=== PATIENT | female | born 1945 | race Caucasian/White ===

== ENCOUNTER 2017-04-02 08:23 | Outpatient (CLI) | payer BC ==
--- NOTE | 2017-04-02 10:19 | PRG ---
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 The patient was previously seen in April of this year in the Wound Center for an ulceration of the left anterior lower leg. The patie nt states that the ulceration of her right lower leg began in January of this year. She states that the ulceration worsened in its appearance in February and "went crazy" in March. She states she h as been treating the ulceration with Neosporin followed by a Band-Aid. The patient was seen by Dr. Qian contreras and referred to the Wound Center. The patient states she was placed on clindamycin p.o. by Dr Sumit Pascal at the time of her visit. The patient admits to edema of her right lower extremity. She d enies any fever or chills. The patient has undergone venous ablation on the left, but not on the rig . PHYSICAL EXAMINATION: VITAL SIGNS: Temperature 97.7, pulse 68, respirations 18, blood pressure 109/56. EXTREMITIES: The ulceration of the right medial lower leg measures approximately 2.0 x 1.6 cm. Gran ulation tissue is present within the wound margins. No purulent drainage is associated with the woun d. No cellulitis of the right lower leg is appreciated. No maceration of the skin of the periwound is noted. A dorsalis pedis pulse is easily palpable on the right. Mild to moderate edema of the rig foot and lower leg is present on today's exam. Silverlon, Webril, and the 3M Coban 2 layer compre ssion system were applied to the ulceration of the right medial lower leg. ASSESSMENT AND PLAN: 1. Varicose veins with ulcer and inflammation. The patient is to return to the Wound Center in 1 we ek for a dressing change of Silverlon, Webril, and the 3M Coban 2 layer compression system. The diego ent is to receive these dressing changes on a weekly basis here in the Wound Center. I will see Ms. Chou again in 3 weeks. 2. Hypothyroidism. 3. Gastroesophageal reflux disease. 4. Irritable bowel syndrome. 5. Osteoarthritis. 6. Multiple allergies.
[2017-04-02] MEDS ORDERED: Sodium Chloride 0.9% 15 ML NEB ONE (17:06)
[2017-04-02] MEDS ORDERED: Lidocaine 2% Jelly 5 ML TUBE ONE (17:06)
== END 2017-04-02 08:24 | disposition home or self-care (01) ==
LOC: WCC 08:23
PROVIDERS: ATTEND Family Medicine
DX: I83.215 Varicose veins of right lower extremity with both ulcer other part of foot and inflammation (principal); E03.9 Hypothyroidism, unspecified; K21.9 Gastro-esophageal reflux disease without esophagitis; K58.9 Irritable bowel syndrome, unspecified; T78.40XA Allergy, unspecified, initial encounter
CPT/HCPCS: 11042; A4218

== ENCOUNTER 2017-04-19 08:45 | Outpatient (CLI) | payer BC ==
[2017-04-19] MEDS ORDERED: Lidocaine 2% Jelly 5 ML TUBE ONE (09:00)
--- NOTE | 2017-04-19 10:41 | PRG ---
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 The patient was previousl y seen in 04/2016 in the Wound Center for an ulceration of the left anterior lower leg. The patient previously stated that the ulceration of her right medial lower leg began in 01/2017. She stated karlo t the ulceration worsened in its appearance in February "went crazy" in March. She stated she had been treating the ulceration with Neosporin followed by a Band-Aid. The patient was seen by Dr. Jonathon caraballo and referred to the Wound Center. The patient stated she was placed on clindamycin p.o. by Dr. Pascal at the time of her visit. The patient stated she had edema of her right lower extremity prio r to being seen in the Wound Center. The patient denies any fever or chills. She has no complaints today. The patient has undergone venous ablation on the left, but not on the right. PHYSICAL EXAMINATION: VITAL SIGNS: Temperature 97.6, pulse 73, respirations 15, and blood pressure 130/64. EXTREMITIES: The ulceration of the right medial lower leg measures approximately 1.5 x 2.3 cm. The dimensions of the wound at the time of the patient's visit on 04/02/2017 were approximately 2.0 x 1.6 cm. A new ulceration is present over the right medial lower leg, which measures approximately 3.0 x 1.7 cm. No purulent drainage is associated with either wound. No cellulitis of the right lower leg is appreciated. No maceration of the skin of the periwound of either wound is noted. No significan t edema of the right foot or lower leg is present on exam today. Silverlon, Webril, and the 3M Coban 2 layer compression system were applied to the ulcerations of the right medial lower leg. ASSESSMENT AND PLAN: 1. Varicose veins with ulcers and inflammation. The patient is to discontinue the dressings applied in clinic today in 1 week and begin dressing changes of Silverlon in conjunction with the use of her compression garment. Arrangements will also be made for the patient to be evaluated for venous abla tion on the right. I will see Ms. Chou again after she has been evaluated for venous ablation on t he right and any necessary treatment is complete. The patient understands and is in agreement with preceding treatment plan. 2. Hypothyroidism. 3. Gastroesophageal reflux disease. 4. Irritable bowel syndrome. 5. Osteoarthritis. 6. Multiple allergies.
== END 2017-04-19 08:46 | disposition home or self-care (01) ==
LOC: WCC 08:45
PROVIDERS: ATTEND Family Medicine
DX: I83.218 Varicose veins of right lower extremity with both ulcer of other part of lower extremity and inflammation (principal); L97.919 Non-pressure chronic ulcer of unspecified part of right lower leg with unspecified severity; E03.9 Hypothyroidism, unspecified; K21.9 Gastro-esophageal reflux disease without esophagitis; K58.9 Irritable bowel syndrome, unspecified; M19.90 Unspecified osteoarthritis, unspecified site; T78.8XXA Other adverse effects, not elsewhere classified, initial encounter
CPT/HCPCS: 97602

== ENCOUNTER 2017-08-16 09:12 | Outpatient (CLI) | payer BC ==
--- NOTE | 2017-08-16 11:14 | PRG ---
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 The patient states she ma y undergo venous ablation on the left by Dr. Jauregui. The patient has previously undergone venous ablat ion on the right with an improvement in the appearance of the ulceration of her right medial lower le g. The patient is presently performing dressing changes of Silverlon for her ulcerations. PHYSICAL EXAMINATION: VITAL SIGNS: Temperature 97.7, pulse 86, respirations 20, blood pressure 136/65. EXTREMITIES: The ulceration of the right medial lower leg measures approximately 8.5 x 3.8 cm. An u lceration of the right lateral lower leg is present which measures approximately 0.5 x 0.5 cm. Anoth er ulceration of the left lateral lower leg is present which measures approximately 3.5 x 3.5 cm. No purulent drainage is associated with any of the wounds. Erythema of the right and left lower legs i s present which appears to be secondary to stasis changes as opposed to an infectious process. No ma ceration of the skin of the right or left lower leg is present on exam today. A dorsalis pedis pulse is easily palpable on the right and on the left. Edema of the right and left feet and lower legs is present on exam today. ASSESSMENT AND PLAN: 1. Varicose veins with ulcers and inflammation. The ulcerations will be dressed with Xeroform gauze , ABDs, Kerlix, and Patrick bandages today. The patient is to continue daily dressing changes for her ul cerations after cleansing and irrigation. The patient will be referred to Dr. Jauregui for evaluation fo r venous ablation on the left. 2. Lymphedema tarda. The patient continues to have edema of the lower extremities, despite elevatio n and treatment with compression. Arrangements will be made for the initiation of in-home lymphedema therapy with a pneumatic pump. 3. Hypothyroidism. 4. Gastroesophageal reflux disease. 5. Irritable bowel syndrome. 6. Osteoarthritis. 7. Multiple allergies.
[2017-08-16] MEDS ORDERED: Sodium Chloride 0.9% 15 ML NEB ONE (15:33)
[2017-08-16] MEDS ORDERED: Lidocaine 2% Jelly 5 ML TUBE ONE (15:33)
== END 2017-08-16 09:13 | disposition home or self-care (01) ==
LOC: WCC 09:12
PROVIDERS: ATTEND Family Medicine
DX: I83.218 Varicose veins of right lower extremity with both ulcer of other part of lower extremity and inflammation (principal); I89.0 Lymphedema, not elsewhere classified; E03.9 Hypothyroidism, unspecified; K21.9 Gastro-esophageal reflux disease without esophagitis; K58.9 Irritable bowel syndrome, unspecified; M19.90 Unspecified osteoarthritis, unspecified site; L97.919 Non-pressure chronic ulcer of unspecified part of right lower leg with unspecified severity; Z91.09 Other allergy status, other than to drugs and biological substances
CPT/HCPCS: 29581; A4218

== ENCOUNTER 2017-08-31 20:48 | Inpatient (IN) | payer BC, MEDICARE ==
[2017-08-31 23:04] LABS: #Basophils 0.2 thou/uL (0.0-0.2); #Monocytes 1.1 thou/uL (0.11-0.59); #Neutrophils 9.1 thou/uL (1.40-6.50); %Basophils 1.6 % (0.0-1.0); %Lymphocytes 9.1 % (21.0-51.0); %Monocytes 9.3 % (0.0-10.0); Hemoglobin 11.7 g/dL (12.0-16.0); Mean Corpuscular HGB CONC 33.6 g/dL (32.0-36.0); Mean Corpuscular Hemoglobin 28.9 pg (27.0-31.0); Mean Corpuscular Volume 85.8 fl (81.0-99.0); Mean Platelet Volume 4.8 fL (7.4-10.4); Platelet Count 326 thou/uL (130-400); RBC Distribution Width 10.5 % (11.5-14.5); Red Blood Cell (RBC) Count 4.05 mill/uL (4.20-5.40); White Blood Cell (WBC) Count 11.3 thou/uL (4.8-10.8)
[2017-08-31 23:12] LABS: ALT (SGPT) 16 U/L (8-55); AST (SGOT) 19 U/L (5-34); Albumin 3.9 g/dL (3.4-4.8); Alkaline Phosphatase 63 U/L (40-150); Anion Gap 15 mmol/L (10-20); BUN (Urea Nitrogen) 17 mg/dL (9.8-20.1); Bilirubin, Total 0.6 mg/dL (0.2-1.2); Calc. Creatinine Clearance 0 mL/min (70-130); Calcium 9.2 mg/dL (7.8-10.44); Carbon Dioxide 24 mmol/L (23-31); Chloride 99 mmol/L (98-107); Estimated GFR-MDRD Greater than 90; Globulin 3.1 g/dL (2.4-3.5); Glucose 89 mg/dL (83-110); Potassium 3.3 mmol/L (3.5-5.1); Sodium 135 mmol/L (136-145)
--- NOTE | 2017-08-31 23:15 | RAD ---
AP VIEW PELVIS: 08/31/17 HISTORY: History of hip surgery in 1999. Patient had a recent history of fall with left sided hip pain. AP view pelvis is obtained. Comparison made to previous exam from 12/20/09. AP view pelvis demonstrates surgical changes in the right proximal femur compatible with old surgical trauma and hardware. There is now an area of displaced osseous lucency in the left superior and inferior pubic rami. These were not present on the patient's previous comparison radiograph from 2009 and likely represents acu te left pelvic fractures. The left proximal femur is unremarkable. IMPRESSION: Findings concerning for left superior and inferior pubic rami fractures. POS: [facility]
[2017-08-31] MEDS ORDERED: Clindamycin/D5W 900 mg/50 ml Premix Bag ONE (23:16)
[2017-08-31] MEDS ORDERED: Morphine 5 MG/ML SYRINGE ONE (23:36)
[2017-09-01] MEDS ORDERED: Morphine 5 MG/ML SYRINGE ONE (01:53)
[2017-09-01] MEDS ORDERED: Acetaminophen 325 MG TAB PO PRN ×2 (02:43→11:33)
[2017-09-01] MEDS ORDERED: Ondansetron ODT 4 MG TAB SL PRN (02:43)
[2017-09-01] MEDS ORDERED: Ondansetron HCl/PF 4 MG/2 ML Vial IVP PRN ×2 (02:43→11:33)
[2017-09-01] MEDS: Morphine 4 MG/ML VIAL SLOW IVP PRN ×2 (03:26→10:21)
[2017-09-01 03:30] VITALS: BMI 23.8
[2017-09-01] MEDS ORDERED: Mag-Al 1200 mg/1200 mg/30 ML UDCUP PO PRN (11:33)
[2017-09-01] MEDS ORDERED: Senokot 8.6 MG TAB PO PRN (11:33)
[2017-09-01] MEDS ORDERED: Guaifenesin DM 100-10/5 ML UDCUP PO PRN (11:33)
--- NOTE | 2017-09-01 11:41 | CT ---
PRELIMINARY REPORT/[facility]/EMERGENTY AFTER-HOURS PROCEDURE CT Pelvis Without Intravenous Contrast CLINICAL HISTORY: 72 years old, female; Pain and injury or trauma; Fall; Initial encounter; Fracture of pelvis & hip; L eft; Traumatic fracture; Ischium; Closed fracture; Hip pain; Left hip; Injury date: 08/26/2017; Injury details: Fall five days ago, C/O left hip pain; Patient HX: Hs of right hip surgery in 2010 TECHNIQUE: Axial computed tomography images of the pelvis without intravenous contrast. All CT scans at this regional medical center use one or more dose reduction techniques, viz.: automated exposure control; ma/Kv adjustment p er patient size (including targeted exams where dose is matched to indication; i.e. head); or iterative reconstruction technique. Coronal and sagittal reformatted images were created and revie wed. COMPARISON: No relevant prior studies available. FINDINGS: Moderately displaced acute fracture of the lateral aspect of the left superior pubic ramus. Mildly di splaced and slightly comminuted acute fracture of the mid left inferior pubic ramus. No visible acute fracture or dislocation of either femoral head or neck. Old fracture of the right hip with fixation hardware in place. No definite acute fracture of the other included bones of the pelvis. No definite/significant diastases of either SI joint, or the symphysis pubis. Moderate degenerative/arthritic changes in the lower lumbar spine. Multiple enlarged lymph nodes in the inguinal regions bilaterally. IMPRESSION: Acute fractures of the left superior and inferior pubic rami, see above details. No visible acute fracture or dislocation of either femoral head or neck. Other findings discussed above. Thank you for allowing us to participate in the care of your patient. Dictated and Authenticated by: Satnam Avila MD 09/01/2017 1:08 AM Central Time ([place] & [place]) FINAL REPORT CT OF PELVIS PERFORMED WITHOUT CONTRAST ENHANCEMENT: Date: 08/31/17 HISTORY: Fall with left hip pain. FINDINGS: The inferior margin of the liver is seen on this examination. I cannot exclude the liver being enlarg ed given its position. There are no signs of any free fluid within the pelvis. There is no adenopathy or mass. Review of the osseous structures show arthritic changes of the SI joints. No diastasis of t he symphysis. There are acute left superior and inferior pubic rami fractures. There are arthritic ch anges of the left hip. No femoral neck fracture. Postoperative changes of the right hip are seen. IMPRESSION: 1. Acute left superior and inferior pubic rami fractures. There is some associated hematoma in the r egion of the obturator internus on the left and adductor muscle groups. 2. Incidental note is made of some moderately enlarged inguinal nodes of uncertain significance. Cli nical correlation is recommended. This report is in agreement with the preliminary report issued by [facility]. POS: [facility]
[2017-09-01] MEDS: Vancomycin HCl 1 GM in Premix Bag 1 BAG IVPB SCH (14:24)
[2017-09-01] MEDS ORDERED: Levothyroxine Sodium 100 MCG TAB PO SCH (14:30)
[2017-09-01] MEDS: HYDROcodone/Acetaminophen 5/325 mg Tablet PO PRN ×2 (14:39→18:38)
--- NOTE | 2017-09-01 16:13 | ULT ---
BILATERAL LOWER EXTREMITY VENOUS DOPPLER ULTRASOUND EVALUATION 09/01/17 HISTORY: Lower extremity pain, pelvic fracture six days ago. FINDINGS/IMPRESSION: Multiple longitudinal and transverse images of the right and left lower extremity venous system is ob tained using a multihertz linear array transducer. Real time, color flow, and spectral waveform doppl er analysis demonstrates the right and left common femoral, superficial femoral, femoral profunda, po pliteal, posterior tibial vein, post trifurcation vein, and greater saphenous veins are all patent. No evidence of right or left lower extremity deep venous thrombosis seen. Enlarged left groin solid lesion seen with internal areas of hyperechogenicity. This is compatible wi th multiple bilateral groin lymph nodes. POS: [facility]
[2017-09-01] MEDS: cefTRIAXone\\ROCEPHIN 1 GM in Sodium Chloride 0.9% 100 ML IVPB SCH (16:41)
--- NOTE | 2017-09-01 19:29 | HP ---
REASON FOR ADMISSION: Pubic rami fracture, chronic venous stasis with likely secondary bacterial infection in both lower extremity ulcers. HISTORY OF PRESENT ILLNESS: The patient gives a history of tipping over at home and fell on her left side. This happened on Sunday. She felt a bit of pain in her groin area. On Sunday, she had to use two canes to ambulate. This progressively got worse. On Sunday, her finished carpet inspector had come and in fact helped her to get in the car to go to [facility] at 7:00 p.m. Patient also mentions that she has had venous stasis for nearly 40 years. She has had a recent laser ablation done in July [address] Jauregui. She has also had some skin grafting done around the same time by Dr. Flaherty. Both the lower extremities are becoming more erythematous per patient and swollen with pain to ambulate. She has noticed yellow discharge coming out of her both lower extremity ulcerations recently. Patient says she took clindamycin for nearly 6 weeks up until mid July. No fever as such at home. PAST MEDICAL/SURGICAL HISTORY: Chronic venous stasis in both lower extremities from last 40 years or so, prior laser ablation and skin grafting to both lower extremities, hypothyroidism, irritable bowel syndrome with diarrhea, cataract surgery, retinal detachment x2 with repair done by Dr. Pierson, had a hip surgery, osteoporosis, anxiety, depression. CURRENT MEDICATIONS: Patient takes Levoxyl 200 mcg p.o. daily, vitamin D3 of 2000 units p.o. daily, ranitidine 75 mg p.o. twice daily. ALLERGIES: PENICILLIN, SULFA, and TETRACYCLINE. PERSONAL HISTORY: Does not abuse alcohol or drugs. No history of smoking. 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 Patient normally ambulates by herself and has been ambulating around 5000 steps. FAMILY HISTORY: Mother lived up to 88 years. She had history of diabetes and osteoporosis. Father at the age of 70 years. He has had history of coronary artery disease, dyslipidemia. Code status: is FULL. EVANGELISTA is one of her 2 children, son is easy to respond to phone calls per patient. REVIEW OF SYSTEMS: The following complete review of systems was negative, unless otherwise mentioned in the HPI or below: Constitutional: Weight loss or gain, ability to conduct usual activities. Skin: Rash, itching. Eyes: Double vision, pain. ENT/Mouth: Nose bleeding, neck stiffness, pain, tenderness. Cardiovascular: Palpitations, dyspnea on exertion, orthopnea. Respiratory: Shortness of breath, wheezing, cough, hemoptysis, fever or night sweats. Gastrointestinal: Poor appetite, abdominal pain, heartburn, nausea, vomiting, constipation, or diarrhea. Genitourinary: Urgency, frequency, dysuria, nocturia. Musculoskeletal: Pain, swelling. Neurologic/Psychiatric: Anxiety, depression. Allergy/Immunologic: Skin rash, bleeding tendency. PHYSICAL EXAMINATION: GENERAL: Patient is a 72-year-old female who is currently not in any acute distress. VITAL SIGNS: Blood pressure 110/60, pulse 82 per minute, respiratory rate 16 per minute, temperature 98.2 degrees Fahrenheit, saturating 98% on room air. NECK: Supple, no elevated JVD. HEENT: Extraocular muscles intact. Pupils reacting to light. Oral cavity mucous membranes are dry. No exudates or congestion. CARDIOVASCULAR: S1, S2 heard. Regular rhythm. RESPIRATORY: Air entry 1+ bilaterally. No rales or rhonchi. ABDOMEN: Soft, bowel sounds heard. No tenderness, rigidity or guarding. EXTREMITIES: Patient has ulcers over the medial aspect of both legs which are covered in dressing. She also has erythema surrounding these ulcerations. Has mild edema. Patient has mild edema and mild calf tenderness as well. Peripheral pulses are 1+ bilateral. No gangrene seen. CENTRAL NERVOUS SYSTEM: No gross focal deficits seen. Patient is alert, awake , and oriented well. PSYCHIATRIC: Patient's mood is euthymic. No hallucinations or delusions. LABORATORY AND X-RAY FINDINGS: White count of 11, H&H 11 and 34, platelet count 326,000 with 80% neutrophils, MCV is 85, potassium 3.3, sodium 135, BUN 17 , creatinine 0.5, glucose 89. Lactic acid 1.0. Liver enzymes within normal limits. Pelvic CAT scan done shows acute left superior and inferior pubic rami fractures with some associated hematoma in the region of obturator internus on the left and adductor muscle groups. There is also moderately enlarged inguinal nodes of uncertain significance. CLINICAL IMPRESSION AND PLAN: Patient will be admitted to medical floor for pubic rami fractures, chronic wounds on both lower extremities due to venous stasis with ulcerations and current secondary bacterial infection. We will place her on ceftriaxone and vancomycin. Dr. Ross has been consulted from ER. PT, OT evaluations will be requested. Patient likely will need rehabilitation. She stays alone. Ultrasound venous Doppler of lower extremities will be obtained to rule out DVT. Patient states she is functional and ambulates nearly 5000 steps at home. She does not use any assistive devices. Wound Care consultation will be requested as well. We will continue her Levoxyl, melatonin, vitamin D3 as before. We will continue to closely monitor her on medical floor. LORI
[2017-09-01] MEDS: Famotidine 20 MG TAB PO SCH (23:52)
[2017-09-01] MEDS: Melatonin 3 MG TAB PO SCH (23:52)
[2017-09-01] MEDS: guaiFENesin ER 600 MG TAB PO SCH (23:52)
[2017-09-02] MEDS: Vancomycin HCl 1 GM in Premix Bag 1 BAG IVPB SCH ×2 (02:20→13:45)
[2017-09-02 04:36] LABS: #Lymphocytes 1.1 thou/uL (1.20-3.40); #Monocytes 1.2 thou/uL (0.11-0.59); #Neutrophils 8.8 thou/uL (1.40-6.50); %Basophils 0.3 % (0.0-1.0); %Eosinophils 0.1 % (0.0-10.0); %Lymphocytes 9.7 % (21.0-51.0); %Monocytes 10.9 % (0.0-10.0); Hemoglobin 11.1 g/dL (12.0-16.0); Mean Corpuscular HGB CONC 33.4 g/dL (32.0-36.0); Mean Corpuscular Hemoglobin 29.6 pg (27.0-31.0); Mean Corpuscular Volume 88.7 fl (81.0-99.0); Mean Platelet Volume 5.5 fL (7.4-10.4); Platelet Count 332 thou/uL (130-400); RBC Distribution Width 11.3 % (11.5-14.5); Red Blood Cell (RBC) Count 3.73 mill/uL (4.20-5.40); White Blood Cell (WBC) Count 11.2 thou/uL (4.8-10.8)
[2017-09-02 04:49] LABS: Anion Gap 8 mmol/L (10-20); BUN (Urea Nitrogen) 17 mg/dL (9.8-20.1); Calc. Creatinine Clearance 115 mL/min (70-130); Calcium 8.2 mg/dL (7.8-10.44); Carbon Dioxide 25 mmol/L (23-31); Chloride 101 mmol/L (98-107); Estimated GFR-MDRD Greater than 90; Glucose 123 mg/dL (83-110); Potassium 3.3 mmol/L (3.5-5.1); Sodium 131 mmol/L (136-145)
[2017-09-02] MEDS: Levothyroxine Sodium 100 MCG TAB PO SCH (05:35)
[2017-09-02] MEDS ORDERED: Potassium Chloride 20 MEQ TAB PO SCH (07:45)
[2017-09-02] MEDS ORDERED: VANCOMYCIN IVPB PRN (08:32)
[2017-09-02] MEDS: Enoxaparin Sodium 40 MG/0.4 ML SYRINGE SC SCH (08:33)
[2017-09-02] MEDS: Famotidine 20 MG TAB PO SCH ×2 (08:33→20:11)
[2017-09-02] MEDS: guaiFENesin ER 600 MG TAB PO SCH ×2 (08:33→20:11)
[2017-09-02] MEDS: HYDROcodone/Acetaminophen 5/325 mg Tablet PO PRN ×3 (08:36→20:11)
--- NOTE | 2017-09-02 11:19 | PDOC.PN ---
- Subjective Encounter Start Date: 09/02/17 Encounter Start Time: 10:15 Subjective: pain is better -: is waiting for PT to help her mobilize - Objective Resuscitation Status: Resuscitation Status FULL:Full Resuscitation MAR Reviewed: Yes Vital Signs & Weight: Vital Signs (12 hours) Temp Pulse Resp BP Pulse Ox 09/02/17 07:50 98.7 F 88 20 93 L 09/02/17 07:36 98.7 F 88 20 119/68 09/02/17 04:00 98.2 F 88 14 122/72 96 09/01/17 23:35 98.8 F 88 16 107/66 93 L Weight Admit Weight 151 lb 15.424 oz Weight 151 lb 15.424 oz I&O: 09/01/17 09/02/17 09/03/17 06:59 06:59 06:59 Intake Total 251 1840 Balance 251 1840 Result Diagrams: 09/02/17 03:14 09/02/17 03:14 Phys Exam - Physical Examination HEENT: PERRLA, moist MMs Neck: no JVD, supple Respiratory: no wheezing, no rales Cardiovascular: RRR, no significant murmur Gastrointestinal: soft, non-tender, positive bowel sounds Musculoskeletal: edema present b/l leg ulcers Neurological: non-focal, moves all 4 limbs Psychiatric: normal affect, A&O x 3 Dx/Plan (1) Bilateral leg ulcer Code(s): L97.919 - NON-PRS CHRONIC ULC UNSP PRT OF R LOW LEG W UNSP SEVERITY; L97.929 - NON-PRS CHRONIC ULC UNSP PRT OF L LOW LEG W UNSP SEVERITY Status: Acute (2) Chronic venous stasis Code(s): I87.8 - OTHER SPECIFIED DISORDERS OF VEINS Status: Chronic (3) Pelvic fracture Code(s): S32.9XXA - FRACTURE OF UNSP PARTS OF LUMBOSACRAL SPINE AND PELVIS, INIT Status: Acute Qualifiers: Encounter type: subsequent encounter Pelvic bone location: pubis Fracture type: closed Laterality: left Comment: left sup and inf rami fracture (4) Hypothyroidism Code(s): E03.9 - HYPOTHYROIDISM, UNSPECIFIED Status: Chronic Qualifiers: Hypothyroidism type: unspecified Qualified Code(s): E03.9 - Hypothyroidism , unspecified (5) Osteoporosis Code(s): M81.0 - AGE-RELATED OSTEOPOROSIS W/O CURRENT PATHOLOGICAL FRACTURE Status: Chronic - Plan is on vanc and ceftriaxone -: surgical consult, ?debridement -: eventually has to wear compression device for wound healing -: replace K+ -: to amb with PT, dc plan is to rehab/swing bed * . Review of Systems - Medications/Allergies Allergies/Adverse Reactions: Allergies Allergy/AdvReac Type Severity Reaction Status Date / Time Penicillins Allergy Verified 10/09/12 09:21 Sulfa (Sulfonamide Allergy Verified 10/09/12 09:21 Antibiotics) Tetracyclines Allergy Verified 10/09/12 09:21 Medications: Current Medications Acetaminophen (Tylenol) 650 mg PO Q4H PRN PRN Reason: Headache/Fever or Pain Last Admin: 09/01/17 18:38 Dose: 650 mg Hydrocodone Bitart/Acetaminophen (Mcgrady 5/325) 1 tab PO Q4H PRN PRN Reason: Moderate Pain (4-6) Last Admin: 09/02/17 08:36 Dose: 1 tab Al Hydroxide/Mg Hydroxide (Maalox) 30 ml PO Q6H PRN PRN Reason: Heartburn or Indigestion Cholecalciferol (Vitamin D3) 2,000 units PO DAILY [facility] Last Admin: 09/02/17 08:33 Dose: 2,000 units Enoxaparin Sodium (Lovenox) 40 mg SC 0900 [facility] Last Admin: 09/02/17 08:33 Dose: 40 mg Famotidine (Pepcid) 20 mg PO BID [facility] Last Admin: 09/02/17 08:33 Dose: 20 mg Guaifenesin (Mucinex) 600 mg PO BID [facility] Last Admin: 09/02/17 08:33 Dose: 600 mg Guaifenesin/Dextromethorphan (Robitussin Dm) 15 ml PO Q4H PRN PRN Reason: Cough Ceftriaxone Sodium 1 gm/ (Sodium Chloride) 100 mls @ 200 mls/hr IVPB 1300 [facility] Last Admin: 09/01/17 16:41 Dose: 100 mls Vancomycin HCl 1 gm/ Device 200 mls @ 200 mls/hr IVPB 0200,1400 [facility] Last Admin: 09/02/17 02:20 Dose: 200 mls Levothyroxine Sodium (Synthroid) 200 mcg PO 0600 [facility] Last Admin: 09/02/17 05:35 Dose: 200 mcg Melatonin (Melatonin) 3 mg PO HS [facility] Last Admin: 09/01/17 23:52 Dose: 3 mg Miscellaneous Medication (Pharmacy To Dose) 1 each IVPB PRN PRN PRN Reason: Pharmacy to dose Ondansetron HCl (Zofran) 4 mg IVP Q6H PRN PRN Reason: Nausea/Vomiting Senna (Senokot) 2 tab PO HSPRN PRN PRN Reason: Constipation
[2017-09-02] MEDS: cefTRIAXone\\ROCEPHIN 1 GM in Sodium Chloride 0.9% 100 ML IVPB SCH (12:24)
--- NOTE | 2017-09-02 13:45 | CON ---
DATE OF CONSULTATION: 09/01/2017 REQUESTING PHYSICIAN: Dr. Baker. REASON FOR CONSULTATION: Pubic rami fracture, left superior and inferior. BRIEF HISTORY OF PRESENT ILLNESS: The patient is a 72-year-old lady, who reports that she fell from a stool at home, landing on her left side, approximately 1 week prior to this admission. She reports some pain in the groin area and was using canes to ambulate. This pain progressively worsened and s he presented to the emergency room for evaluation, and upon evaluation, was found to have pubic rami fracture both superior and inferior on the left side. She was also found to have some erythema of th e right lower extremity, which apparently has been a chronic problem secondary to chronic venous rehan is disease. She has had some vein work performed and has been on clindamycin for nearly up to 6 week s until mid July for this problem and this does appear to be recurring at this point. PAST MEDICAL HISTORY: Remarkable for chronic venous stasis disease. The patient is status post abla tion. Also, diagnosis of hypothyroidism, irritable bowel, cataract disease, prior hip surgery, and o steoporosis. MEDICATIONS: Include Levoxyl, vitamin D, and ranitidine. ALLERGIES: Include PENICILLIN, SULFA, AND TETRACYCLINE. SOCIAL HISTORY: Patient is a nonsmoker. Denies alcohol or drug use. FAMILY HISTORY: Noncontributory. REVIEW OF SYSTEMS: Denies recent fevers, chills, or sweats. Denies chest pain or shortness of breat h. Denies numbness or tingling in the lower extremity. PHYSICAL EXAMINATION: VITAL SIGNS: Patient is found to have a temperature of 97.7, heart rate of 78, respiratory rate of 1 6. HEENT: Atraumatic, normocephalic. LUNGS: Breathing is unlabored. PELVIS: Remarkable for no instability with compression or push/pull at the pelvis, although with com pression, she does feel some mild left-sided groin pain. MUSCULOSKELETAL: She is found to have equal leg lengths. She has supple range of motion of hip, kne es, ankle, and feet distally. She denies any posterior sacroiliac-type pain. SKIN: The right lower extremity remarkable for erythema that extends up to about mid thigh. She is found to have wrappings over her venous stasis ulcers at the acosta. X-RAYS: Plain films of the pelvis as well as CT scan of pelvis remarkable for left-sided high superi or ramus fracture as well as inferior rami with minimal displacement. ASSESSMENT: A 72-year-old lady with minimally displaced superior and inferior rami fractures with a stable pelvic ring, status post ground-level fall, approximately 1 week ago, and with cellulitis and chronic venous stasis disease of the right lower extremity. PLAN: Today, I discussed with patient that she may mobilize as tolerated. She will probably be more comfortable with a walker; however, she may be weightbearing as tolerated bilaterally. At this poin t in time, we will just repeat x-rays in approximately 1 month's time in the clinic for followup. e patient may be discharged when she is medically cleared regarding her cellulitic issues and other m edical problems.
--- NOTE | 2017-09-02 14:33 | CON ---
DATE OF CONSULTATION: 09/02/[address] Baker, [facility]. REASON FOR CONSULTATION: Venous stasis disease, lower extremity. HISTORY OF PRESENT ILLNESS: This is a 72-year-old female, who presents with a history of longstandin g venous stasis disease, bilateral lower extremities. She has had vein ablation, now she sees Dr. Sr fuller for chronic venous stasis ulcers. She has had a couple allograft skin grafts. No split-thickn ess skin grafts. She has not had any debridement other than what Dr. Flaherty has done. She denies h istory of known wound VAC on these areas. She presents with more pain and swelling in the area. PAST MEDICAL HISTORY: Venous stasis disease, retinal detachment, irritable bowel syndrome, osteoporo sis, anxiety, depression. PAST SURGICAL HISTORY: As above. MEDICINES: At home, Levoxyl, vitamin D, ranitidine. ALLERGIES: PENICILLIN, SULFA, TETRACYCLINE. 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 No smoking, alcohol, or other drugs. REVIEW OF SYSTEMS: Otherwise, negative unless described above. No family history of GI malignancy o r anesthetic-related complication. PHYSICAL EXAMINATION: VITAL SIGNS: Blood pressure 103/62, pulse 70, respirations 18. HEENT: Sclerae are anicteric. Oropharynx clear. NECK: No lymphadenopathy. CHEST: Clear. HEART: Regular rate and rhythm. ABDOMEN: Soft, nontender. EXTREMITIES: Examination of bilateral lower extremity shows there to be no limb-threatening ischemia . Examination of the right lower extremity wounds reveals there to be venous stasis ulcers, medial a nd lateral. There is buildup of some granulation tissue. There is also some fibrinopurulent dischar ge with some surrounding redness, no drainable abscess. No wound necrotic tissue. ASSESSMENT: Chronic longstanding venous stasis disease with persistent venous stasis ulcers. PLAN: My recommendation will be wound VAC to these areas to get him cleaned up. We will discuss derick Flaherty in the morning. The patient notes some other sort of pressure wound device, so we will touch base with Dr. Flaherty to make sure we are on the same page.
[2017-09-02] MEDS: Melatonin 3 MG TAB PO SCH (20:11)
[2017-09-03] MEDS: HYDROcodone/Acetaminophen 5/325 mg Tablet PO PRN ×5 (01:07→21:47)
[2017-09-03 01:25] LABS: Vancomycin, Trough 7.1 ug/mL
[2017-09-03] MEDS: Vancomycin HCl 1 GM in Premix Bag 1 BAG IVPB SCH (03:28)
[2017-09-03] MEDS: Levothyroxine Sodium 100 MCG TAB PO SCH (05:42)
[2017-09-03] MEDS: Enoxaparin Sodium 40 MG/0.4 ML SYRINGE SC SCH (09:26)
[2017-09-03] MEDS: guaiFENesin ER 600 MG TAB PO SCH ×2 (09:26→21:47)
[2017-09-03] MEDS: Famotidine 20 MG TAB PO SCH ×2 (09:26→21:47)
[2017-09-03] MEDS ORDERED: Vancomycin HCl 1.25 GM in Sodium Chloride 0.9% 250 ML 250 ML IVPB SCH (12:00)
[2017-09-03] MEDS: Vancomycin HCl 1.5 GM in Sodium Chloride 0.9% 250 ML 300 ML IVPB SCH ×2 (12:16→23:57)
[2017-09-03] MEDS: cefTRIAXone\\ROCEPHIN 1 GM in Sodium Chloride 0.9% 100 ML IVPB SCH (13:54)
--- NOTE | 2017-09-03 14:29 | PDOC.PN ---
- Subjective Encounter Start Date: 09/03/17 Encounter Start Time: 09:15 -: old records requested/rev Patient seen and examined for pubic rami fracture. No new complaints. No overnight events - Objective Resuscitation Status: Resuscitation Status FULL:Full Resuscitation MAR Reviewed: Yes Vital Signs & Weight: Vital Signs (12 hours) Temp Pulse Resp BP Pulse Ox 09/03/17 11:35 97.7 F 69 12 110/70 95 09/03/17 08:00 97.7 F 72 14 95 09/03/17 04:33 98 F 68 16 104/61 98 Weight Admit Weight 151 lb 15.424 oz Weight 151 lb 15.424 oz I&O: 09/02/17 09/03/17 09/04/17 06:59 06:59 06:59 Intake Total 1840 1600 650 Balance 1840 1600 650 Result Diagrams: 09/02/17 03:14 09/02/17 03:14 Phys Exam - Physical Examination Constitutional: NAD HEENT: PERRLA, moist MMs, sclera anicteric Neck: no JVD, supple Respiratory: no wheezing, no rales, no rhonchi Cardiovascular: RRR, no significant murmur, no rub Gastrointestinal: soft, non-tender, no distention, positive bowel sounds Musculoskeletal: no edema, pulses present wound with dressing, erythema reduced Neurological: non-focal, normal sensation Lymphatic: no nodes Psychiatric: normal affect, A&O x 3 Skin: no rash, normal turgor Dx/Plan (1) Bilateral leg ulcer Code(s): L97.919 - NON-PRS CHRONIC ULC UNSP PRT OF R LOW LEG W UNSP SEVERITY; L97.929 - NON-PRS CHRONIC ULC UNSP PRT OF L LOW LEG W UNSP SEVERITY Status: Acute (2) Fracture of left inferior pubic ramus Code(s): S32.592A - OTH FRACTURE OF LEFT PUBIS, INIT ENCNTR FOR CLOSED FRACTURE Status: Acute (3) Fracture of left superior pubic ramus Code(s): S32.512A - FRACTURE OF SUPERIOR RIM OF LEFT PUBIS, INIT FOR CLOS FX Status: Acute (4) Chronic venous stasis Code(s): I87.8 - OTHER SPECIFIED DISORDERS OF VEINS Status: Chronic (5) GERD (gastroesophageal reflux disease) Code(s): K21.9 - GASTRO-ESOPHAGEAL REFLUX DISEASE WITHOUT ESOPHAGITIS Status: Chronic (6) Hypothyroidism Code(s): E03.9 - HYPOTHYROIDISM, UNSPECIFIED Status: Chronic Qualifiers: Hypothyroidism type: unspecified Qualified Code(s): E03.9 - Hypothyroidism , unspecified (7) Osteoarthritis Code(s): M19.90 - UNSPECIFIED OSTEOARTHRITIS, UNSPECIFIED SITE Status: Chronic (8) Osteoporosis Code(s): M81.0 - AGE-RELATED OSTEOPOROSIS W/O CURRENT PATHOLOGICAL FRACTURE Status: Chronic - Plan cont current plan of care, plan discussed w/ family, continue antibiotics, 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 * medication reviewed as below * symptomatic treatment Review of Systems - Review of Systems Eyes: negative: Pain, Vision Change, Conjunctivae Inflammation, Eyelid Inflammation, Redness, Other ENT: negative: Ear Pain, Ear Discharge, Nose Pain, Nose Discharge, Nose Congestion, Mouth Pain, Mouth Swelling, Throat Pain, Throat Swelling, Other Respiratory: negative: Cough, Dry, Shortness of Breath, Hemoptysis, SOB with Excertion, Pleuritic Pain, Sputum, Wheezing Cardiovascular: negative: chest pain, palpitations, orthopnea, paroxysmal nocturnal dyspnea, edema, light headedness, other Gastrointestinal: negative: Nausea, Vomiting, Abdominal Pain, Diarrhea, Constipation, Melena, Hematochezia, Other Genitourinary: negative: Dysuria, Frequency, Incontinence, Hematuria, Retention , Other Musculoskeletal: negative: Neck Pain, Shoulder Pain, Arm Pain, Back Pain, Hand Pain, Leg Pain, Foot Pain, Other Skin: negative: Rash, Lesions, David, Bruising, Other - Medications/Allergies Allergies/Adverse Reactions: Allergies Allergy/AdvReac Type Severity Reaction Status Date / Time Penicillins Allergy Verified 10/09/12 09:21 Sulfa (Sulfonamide Allergy Verified 10/09/12 09:21 Antibiotics) Tetracyclines Allergy Verified 10/09/12 09:21 Medications: Current Medications Acetaminophen (Tylenol) 650 mg PO Q4H PRN PRN Reason: Headache/Fever or Pain Last Admin: 09/01/17 18:38 Dose: 650 mg Hydrocodone Bitart/Acetaminophen ([place] 5/325) 1 tab PO Q4H PRN PRN Reason: Moderate Pain (4-6) Last Admin: 09/03/17 13:53 Dose: 1 tab Al Hydroxide/Mg Hydroxide (Maalox) 30 ml PO Q6H PRN PRN Reason: Heartburn or Indigestion Cholecalciferol (Vitamin D3) 2,000 units PO DAILY [facility] Last Admin: 09/03/17 09:33 Dose: 2,000 units Enoxaparin Sodium (Lovenox) 40 mg SC 0900 [facility] Last Admin: 09/03/17 09:26 Dose: 40 mg Famotidine (Pepcid) 20 mg PO BID [facility] Last Admin: 09/03/17 09:26 Dose: 20 mg Guaifenesin (Mucinex) 600 mg PO BID [facility] Last Admin: 09/03/17 09:26 Dose: 600 mg Guaifenesin/Dextromethorphan (Robitussin Dm) 15 ml PO Q4H PRN PRN Reason: Cough Ceftriaxone Sodium 1 gm/ (Sodium Chloride) 100 mls @ 200 mls/hr IVPB 1300 [facility] Last Admin: 09/03/17 13:54 Dose: 100 mls Vancomycin HCl 1.5 gm/ Sodium (Chloride) 300 mls @ 200 mls/hr IVPB 1200,2359 [facility] Last Admin: 09/03/17 12:16 Dose: 300 mls Levothyroxine Sodium (Synthroid) 200 mcg PO 0600 [facility] Last Admin: 09/03/17 05:42 Dose: 200 mcg Melatonin (Melatonin) 3 mg PO HS [facility] Last Admin: 09/02/17 20:11 Dose: 3 mg Miscellaneous Medication (Pharmacy To Dose) 1 each IVPB PRN PRN PRN Reason: Pharmacy to dose Ondansetron HCl (Zofran) 4 mg IVP Q6H PRN PRN Reason: Nausea/Vomiting Senna (Senokot) 2 tab PO HSPRN PRN PRN Reason: Constipation
[2017-09-03] MEDS: Melatonin 3 MG TAB PO SCH (21:46)
[2017-09-03] MEDS ORDERED: diphenhydrAMINE 25 MG CAP PO SCH (23:45)
[2017-09-04 05:34] LABS: #Basophils 0.1 thou/uL (0.0-0.2); #Lymphocytes 1.5 thou/uL (1.20-3.40); #Monocytes 0.9 thou/uL (0.11-0.59); #Neutrophils 4.6 thou/uL (1.40-6.50); %Basophils 0.9 % (0.0-1.0); %Eosinophils 0.1 % (0.0-10.0); %Lymphocytes 21.7 % (21.0-51.0); %Monocytes 12.9 % (0.0-10.0); %Neutrophils 64.3 % (42.0-75.0); Hemoglobin 11.4 g/dL (12.0-16.0); Mean Corpuscular HGB CONC 31.9 g/dL (32.0-36.0); Mean Corpuscular Hemoglobin 28.7 pg (27.0-31.0); Mean Corpuscular Volume 89.8 fl (81.0-99.0); Mean Platelet Volume 5.4 fL (7.4-10.4); Platelet Count 392 thou/uL (130-400); RBC Distribution Width 11.1 % (11.5-14.5); Red Blood Cell (RBC) Count 3.98 mill/uL (4.20-5.40); White Blood Cell (WBC) Count 7.1 thou/uL (4.8-10.8)
[2017-09-04 05:43] LABS: Anion Gap 7 mmol/L (10-20); BUN (Urea Nitrogen) 16 mg/dL (9.8-20.1); Calc. Creatinine Clearance 99 mL/min (70-130); Calcium 8.7 mg/dL (7.8-10.44); Carbon Dioxide 31 mmol/L (23-31); Chloride 101 mmol/L (98-107); Estimated GFR-MDRD Greater than 90; Glucose 92 mg/dL (83-110); Magnesium 2.2 mg/dL (1.6-2.6); Sodium 135 mmol/L (136-145)
[2017-09-04 06:15] LABS: Folate (Folic Acid) 9.5 ng/mL (7.0-31.4)
[2017-09-04] MEDS: Levothyroxine Sodium 100 MCG TAB PO SCH (06:26)
[2017-09-04] MEDS: HYDROcodone/Acetaminophen 5/325 mg Tablet PO PRN ×3 (08:08→19:26)
[2017-09-04] MEDS: Enoxaparin Sodium 40 MG/0.4 ML SYRINGE SC SCH (08:11)
[2017-09-04] MEDS: guaiFENesin ER 600 MG TAB PO SCH ×2 (08:11→21:00)
[2017-09-04] MEDS: Famotidine 20 MG TAB PO SCH ×2 (08:11→21:00)
--- NOTE | 2017-09-04 11:00 | PDOC.PN ---
- Subjective Encounter Start Date: 09/04/17 Encounter Start Time: 08:45 Patient seen and examined for cellulitis. No new complaints. No overnight events - Objective Resuscitation Status: Resuscitation Status FULL:Full Resuscitation MAR Reviewed: Yes Vital Signs & Weight: Vital Signs (12 hours) Temp Pulse Resp BP Pulse Ox 09/04/17 08:00 96.2 F L 71 15 130/63 94 L 09/04/17 04:33 97.8 F 70 16 138/82 93 L 09/04/17 00:33 99.0 F 70 18 132/66 93 L Weight Admit Weight 151 lb 15.424 oz Weight 151 lb 15.424 oz I&O: 09/03/17 09/04/17 09/05/17 06:59 06:59 06:59 Intake Total 1600 2740 Output Total 0 Balance 1600 2740 Result Diagrams: 09/04/17 04:58 09/04/17 04:58 Phys Exam - Physical Examination Constitutional: NAD HEENT: PERRLA, moist MMs, sclera anicteric Neck: no JVD, supple Respiratory: no wheezing, no rales, no rhonchi Cardiovascular: RRR, no significant murmur, no rub Gastrointestinal: soft, non-tender, no distention, positive bowel sounds Musculoskeletal: no edema, pulses present wound with dressing Neurological: non-focal, normal sensation, moves all 4 limbs Psychiatric: normal affect, A&O x 3 Skin: no rash, normal turgor Dx/Plan (1) Bilateral leg ulcer Code(s): L97.919 - NON-PRS CHRONIC ULC UNSP PRT OF R LOW LEG W UNSP SEVERITY; L97.929 - NON-PRS CHRONIC ULC UNSP PRT OF L LOW LEG W UNSP SEVERITY Status: Acute (2) Fracture of left inferior pubic ramus Code(s): S32.592A - OTH FRACTURE OF LEFT PUBIS, INIT ENCNTR FOR CLOSED FRACTURE Status: Acute (3) Fracture of left superior pubic ramus Code(s): S32.512A - FRACTURE OF SUPERIOR RIM OF LEFT PUBIS, INIT FOR CLOS FX Status: Acute (4) Chronic venous stasis Code(s): I87.8 - OTHER SPECIFIED DISORDERS OF VEINS Status: Chronic (5) GERD (gastroesophageal reflux disease) Code(s): K21.9 - GASTRO-ESOPHAGEAL REFLUX DISEASE WITHOUT ESOPHAGITIS Status: Chronic (6) Hypothyroidism Code(s): E03.9 - HYPOTHYROIDISM, UNSPECIFIED Status: Chronic Qualifiers: Hypothyroidism type: unspecified Qualified Code(s): E03.9 - Hypothyroidism , unspecified (7) Osteoarthritis Code(s): M19.90 - UNSPECIFIED OSTEOARTHRITIS, UNSPECIFIED SITE Status: Chronic (8) Osteoporosis Code(s): M81.0 - AGE-RELATED OSTEOPOROSIS W/O CURRENT PATHOLOGICAL FRACTURE Status: Chronic - Plan cont current plan of care, 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 * increase syntrhoid to 212 mcg po daily Review of Systems - Review of Systems Eyes: negative: Pain, Vision Change, Conjunctivae Inflammation, Eyelid Inflammation, Redness, Other ENT: negative: Ear Pain, Ear Discharge, Nose Pain, Nose Discharge, Nose Congestion, Mouth Pain, Mouth Swelling, Throat Pain, Throat Swelling, Other Respiratory: negative: Cough, Dry, Shortness of Breath, Hemoptysis, SOB with Excertion, Pleuritic Pain, Sputum, Wheezing Cardiovascular: negative: chest pain, palpitations, orthopnea, paroxysmal nocturnal dyspnea, edema, light headedness, other Gastrointestinal: negative: Nausea, Vomiting, Abdominal Pain, Diarrhea, Constipation, Melena, Hematochezia, Other Genitourinary: negative: Dysuria, Frequency, Incontinence, Hematuria, Retention , Other Musculoskeletal: negative: Neck Pain, Shoulder Pain, Arm Pain, Back Pain, Hand Pain, Leg Pain, Foot Pain, Other Skin: negative: Rash, Lesions, David, Bruising, Other - Medications/Allergies Allergies/Adverse Reactions: Allergies Allergy/AdvReac Type Severity Reaction Status Date / Time Penicillins Allergy Verified 10/09/12 09:21 Sulfa (Sulfonamide Allergy Verified 10/09/12 09:21 Antibiotics) Tetracyclines Allergy Verified 10/09/12 09:21 Medications: Current Medications Acetaminophen (Tylenol) 650 mg PO Q4H PRN PRN Reason: Headache/Fever or Pain Last Admin: 09/01/17 18:38 Dose: 650 mg Hydrocodone Bitart/Acetaminophen ([place] 5/325) 1 tab PO Q4H PRN PRN Reason: Moderate Pain (4-6) Last Admin: 09/04/17 08:08 Dose: 1 tab Al Hydroxide/Mg Hydroxide (Maalox) 30 ml PO Q6H PRN PRN Reason: Heartburn or Indigestion Cholecalciferol (Vitamin D3) 2,000 units PO DAILY [facility] Last Admin: 09/04/17 08:11 Dose: 2,000 units Enoxaparin Sodium (Lovenox) 40 mg SC 0900 [facility] Last Admin: 09/04/17 08:11 Dose: 40 mg Famotidine (Pepcid) 20 mg PO BID [facility] Last Admin: 09/04/17 08:11 Dose: 20 mg Guaifenesin (Mucinex) 600 mg PO BID [facility] Last Admin: 09/04/17 08:11 Dose: 600 mg Guaifenesin/Dextromethorphan (Robitussin Dm) 15 ml PO Q4H PRN PRN Reason: Cough Ceftriaxone Sodium 1 gm/ (Sodium Chloride) 100 mls @ 200 mls/hr IVPB 1300 [facility] Last Admin: 09/03/17 13:54 Dose: 100 mls Vancomycin HCl 1.5 gm/ Sodium (Chloride) 300 mls @ 200 mls/hr IVPB 1200,2359 [facility] Last Admin: 09/03/17 23:57 Dose: 300 mls Levothyroxine Sodium (Synthroid) 200 mcg PO 0600 [facility] Last Admin: 09/04/17 06:26 Dose: 200 mcg Melatonin (Melatonin) 3 mg PO HS [facility] Last Admin: 09/03/17 21:46 Dose: 3 mg Miscellaneous Medication (Pharmacy To Dose) 1 each IVPB PRN PRN PRN Reason: Pharmacy to dose Ondansetron HCl (Zofran) 4 mg IVP Q6H PRN PRN Reason: Nausea/Vomiting Senna (Senokot) 2 tab PO HSPRN PRN PRN Reason: Constipation
[2017-09-04] MEDS: Vancomycin HCl 1.5 GM in Sodium Chloride 0.9% 250 ML 300 ML IVPB SCH (11:57)
[2017-09-04] MEDS: cefTRIAXone\\ROCEPHIN 1 GM in Sodium Chloride 0.9% 100 ML IVPB SCH (14:24)
[2017-09-04] MEDS: Melatonin 3 MG TAB PO SCH (21:48)
[2017-09-04 23:51] LABS: Vancomycin, Trough 11.4 ug/mL
[2017-09-05] MEDS ORDERED: Vancomycin HCl 1.75 GM in Sodium Chloride 0.9% 500 ML IVPB SCH ×2 (00:45→12:00)
[2017-09-05] MEDS: HYDROcodone/Acetaminophen 5/325 mg Tablet PO PRN ×4 (00:56→17:10)
[2017-09-05] MEDS: Vancomycin HCl 1.5 GM in Sodium Chloride 0.9% 250 ML 300 ML IVPB SCH (01:12)
[2017-09-05] MEDS ORDERED: Levothyroxine Sodium 112 MCG TAB PO SCH (06:00)
[2017-09-05] MEDS ORDERED: Levothyroxine Sodium 100 MCG TAB PO SCH (06:00)
[2017-09-05] MEDS ORDERED: diphenhydrAMINE 25 MG CAP PO SCH ×2 (09:00→21:00)
--- NOTE | 2017-09-05 10:09 | PDOC.PN ---
- Subjective Encounter Start Date: 09/05/17 Encounter Start Time: 08:30 Patient seen and examined for cellulitis. No new complaints. No overnight events pt is asking for her benadryl pt was able to stand and use bedside commode - Objective Resuscitation Status: Resuscitation Status FULL:Full Resuscitation MAR Reviewed: Yes Vital Signs & Weight: Vital Signs (12 hours) Temp Pulse Resp BP Pulse Ox 09/05/17 07:17 98.1 F 65 18 110/66 94 L 09/05/17 04:55 71 18 111/70 95 09/05/17 04:00 98.7 F 95 16 111/70 95 09/05/17 00:00 98.0 F 70 16 125/74 97 Weight Admit Weight 151 lb 15.424 oz Weight 151 lb 15.424 oz I&O: 09/04/17 09/05/17 09/06/17 06:59 06:59 06:59 Intake Total 2740 Output Total 0 Balance 2740 Result Diagrams: 09/04/17 04:58 09/04/17 04:58 Phys Exam - Physical Examination Constitutional: NAD HEENT: PERRLA, moist MMs, sclera anicteric Neck: no JVD, supple Respiratory: no wheezing, no rales, no rhonchi Cardiovascular: RRR, no significant murmur, no rub Gastrointestinal: soft, non-tender, no distention, positive bowel sounds Musculoskeletal: no edema, pulses present wound with dressing, cellulitis improving Neurological: non-focal, normal sensation, moves all 4 limbs Lymphatic: no nodes Psychiatric: normal affect, A&O x 3 Skin: no rash, normal turgor Dx/Plan (1) Bilateral leg ulcer Code(s): L97.919 - NON-PRS CHRONIC ULC UNSP PRT OF R LOW LEG W UNSP SEVERITY; L97.929 - NON-PRS CHRONIC ULC UNSP PRT OF L LOW LEG W UNSP SEVERITY Status: Acute (2) Fracture of left inferior pubic ramus Code(s): S32.592A - OTH FRACTURE OF LEFT PUBIS, INIT ENCNTR FOR CLOSED FRACTURE Status: Acute (3) Fracture of left superior pubic ramus Code(s): S32.512A - FRACTURE OF SUPERIOR RIM OF LEFT PUBIS, INIT FOR CLOS FX Status: Acute (4) Chronic venous stasis Code(s): I87.8 - OTHER SPECIFIED DISORDERS OF VEINS Status: Chronic (5) GERD (gastroesophageal reflux disease) Code(s): K21.9 - GASTRO-ESOPHAGEAL REFLUX DISEASE WITHOUT ESOPHAGITIS Status: Chronic (6) Hypothyroidism Code(s): E03.9 - HYPOTHYROIDISM, UNSPECIFIED Status: Chronic Qualifiers: Hypothyroidism type: unspecified Qualified Code(s): E03.9 - Hypothyroidism , unspecified (7) Osteoarthritis Code(s): M19.90 - UNSPECIFIED OSTEOARTHRITIS, UNSPECIFIED SITE Status: Chronic (8) Osteoporosis Code(s): M81.0 - AGE-RELATED OSTEOPOROSIS W/O CURRENT PATHOLOGICAL FRACTURE Status: Chronic - Plan cont current plan of care, 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 * await placement Review of Systems - Review of Systems Eyes: negative: Pain, Vision Change, Conjunctivae Inflammation, Eyelid Inflammation, Redness, Other ENT: negative: Ear Pain, Ear Discharge, Nose Pain, Nose Discharge, Nose Congestion, Mouth Pain, Mouth Swelling, Throat Pain, Throat Swelling, Other Respiratory: negative: Cough, Dry, Shortness of Breath, Hemoptysis, SOB with Excertion, Pleuritic Pain, Sputum, Wheezing Cardiovascular: negative: chest pain, palpitations, orthopnea, paroxysmal nocturnal dyspnea, edema, light headedness, other Gastrointestinal: negative: Nausea, Vomiting, Abdominal Pain, Diarrhea, Constipation, Melena, Hematochezia, Other Genitourinary: negative: Dysuria, Frequency, Incontinence, Hematuria, Retention , Other Musculoskeletal: negative: Neck Pain, Shoulder Pain, Arm Pain, Back Pain, Hand Pain, Leg Pain, Foot Pain, Other Skin: negative: Rash, Lesions, David, Bruising, Other - Medications/Allergies Allergies/Adverse Reactions: Allergies Allergy/AdvReac Type Severity Reaction Status Date / Time Penicillins Allergy Verified 10/09/12 09:21 Sulfa (Sulfonamide Allergy Verified 10/09/12 09:21 Antibiotics) Tetracyclines Allergy Verified 10/09/12 09:21 Medications: Current Medications Acetaminophen (Tylenol) 650 mg PO Q4H PRN PRN Reason: Headache/Fever or Pain Last Admin: 09/01/17 18:38 Dose: 650 mg Hydrocodone Bitart/Acetaminophen ([place] 5/325) 1 tab PO Q4H PRN PRN Reason: Moderate Pain (4-6) Last Admin: 09/05/17 05:03 Dose: 1 tab Al Hydroxide/Mg Hydroxide (Maalox) 30 ml PO Q6H PRN PRN Reason: Heartburn or Indigestion Cholecalciferol (Vitamin D3) 2,000 units PO DAILY [facility] Last Admin: 09/04/17 08:11 Dose: 2,000 units Diphenhydramine HCl (Benadryl) 25 mg PO QAM [facility] Diphenhydramine HCl (Benadryl) 50 mg PO HS [facility] Enoxaparin Sodium (Lovenox) 40 mg SC 0900 [facility] Last Admin: 09/04/17 08:11 Dose: 40 mg Famotidine (Pepcid) 20 mg PO BID [facility] Last Admin: 09/04/17 21:00 Dose: 20 mg Guaifenesin (Mucinex) 600 mg PO BID [facility] Last Admin: 09/04/17 21:00 Dose: 600 mg Guaifenesin/Dextromethorphan (Robitussin Dm) 15 ml PO Q4H PRN PRN Reason: Cough Ceftriaxone Sodium 1 gm/ (Sodium Chloride) 100 mls @ 200 mls/hr IVPB 1300 [facility] Last Admin: 09/04/17 14:24 Dose: 100 mls Vancomycin HCl 1.75 gm/ Sodium (Chloride) 500 mls @ 250 mls/hr IVPB 1200,2359 [facility] Levothyroxine Sodium (Synthroid) 112 mcg PO 0600 [facility] Last Admin: 09/05/17 05:04 Dose: 112 mcg Levothyroxine Sodium (Synthroid) 100 mcg PO 0600 [facility] Last Admin: 09/05/17 05:04 Dose: 100 mcg Melatonin (Melatonin) 3 mg PO HS [facility] Last Admin: 09/04/17 21:48 Dose: 3 mg Miscellaneous Medication (Pharmacy To Dose) 1 each IVPB PRN PRN PRN Reason: Pharmacy to dose Ondansetron HCl (Zofran) 4 mg IVP Q6H PRN PRN Reason: Nausea/Vomiting Senna (Senokot) 2 tab PO HSPRN PRN PRN Reason: Constipation Sodium Chloride (Flush - Normal Saline) 10 ml IVF Q12HR [facility] Sodium Chloride (Flush - Normal Saline) 10 ml IVF PRN PRN PRN Reason: Saline Flush
[2017-09-05] MEDS: Enoxaparin Sodium 40 MG/0.4 ML SYRINGE SC SCH (10:15)
[2017-09-05] MEDS: guaiFENesin ER 600 MG TAB PO SCH (10:16)
[2017-09-05] MEDS: Famotidine 20 MG TAB PO SCH (10:49)
[2017-09-05] MEDS: cefTRIAXone\\ROCEPHIN 1 GM in Sodium Chloride 0.9% 100 ML IVPB SCH (15:47)
[2017-09-05 15:48] VITALS: BP 109/62; TEMP 98
--- NOTE | 2017-09-05 15:50 | DIS ---
DATE OF ADMISSION: 09/01/2017 DATE OF DISCHARGE: 09/05/2017 PRIMARY CARE PHYSICIAN: Dr. Doug Pascal. DISCHARGE DISPOSITION: [facility]. PRIMARY DISCHARGE DIAGNOSES: Fracture of left superior and inferior pubic ramus, right lower extremi ty cellulitis with venous stasis, bilateral lower extremity venous ulcer. SECONDARY DISCHARGE DIAGNOSES: Osteoporosis, osteoarthritis, hypothyroidism, gastroesophageal reflux disease, chronic venous insufficiency, physical deconditioning. PRIMARY PROCEDURE/OPERATION: None. RADIOLOGICAL INVESTIGATION: Pelvis x-ray and pelvis CT scan showed left superior and inferior pubic rami fracture. Ultrasound was negative for any DVT. SIGNIFICANT LABS: WBC 7.1, hemoglobin 11.4, platelet 392. Sodium 135, potassium 4.0, BUN 16, creati nine 0.56, calcium 8.7, magnesium 2.2, B12 610. Folate 9.50. TSH 12, blood culture negative. DISCHARGE MEDICATIONS: Keflex 500 mg p.o. twice daily for 15 days, vitamin D3 2000 units p.o. daily, glucosamine chondroitin sulfate 1 capsule daily, Benadryl 25 mg in the morning and 50 mg at bedtime, Mucinex 600 mg p.o. b.i.d., levothyroxine 212 mcg p.o. daily, Invega dose increased, melatonin 3 mg p.o. at bedtime, phenylephrine 10 mg p.o. b.i.d. p.r.n., ranitidine 150 mg p.o. b.i.d., Ocuvite 1 tab let p.o. daily. CONTRAINDICATIONS: None. CODE STATUS: FULL CODE. INPATIENT CONSULTANTS: Dr. Freire was consulted for venous ulcer. Dr. Ross was consulted for p ubic rami fracture. TEST RESULTS PENDING ON DISCHARGE: None. ALLERGIES: PENICILLIN, SULFA, TETRACYCLINE. DISCHARGE PLAN: Post hospital, the patient is planned for discharge to [facility] for more PT , OT and subsequently, the patient will follow up with primary care physician and Dr. Ross as ins tructed. HOSPITAL COURSE: A 72-year-old female with above-mentioned medical problem who was admitted by Dr. Edelmira martinez on 09/01/2017. Please see his H&P for further detail. This patient had a mechanical fall at home and subsequently, she was having pelvis pain. In the emergency room, at that time, pelvis x -ray and pelvis CT scan confirmed a left superior and inferior pubic rami fracture. The patient was also having lower extremity pain and more worsening of erythema on right lower extremity, and she alr phil had a chronic venous ulcer on both lower extremities which was draining purulent material. Jeramy ng this admission, we treated her as for cellulitis and we consulted wound care team. With IV antibi otic therapy, the patient was improving. Her erythema and tenderness significantly improved. The theron marivel is instructed to follow up with the wound care team which she is doing as an outpatient basis. During this admission, she was having significant physical deconditioning from pain and that is why we did PT, OT consultation and rehab was consulted as well. Eventually, the patient was approved for rehab. On discharge, we are changing to oral antibiotic therapy with Keflex for a few more days. S he will continue to get wound care at rehabilitation. She will follow up with Dr. Ross as an out patient basis. While in hospital, we noted that her TSH was not well controlled and that is why we increased dose of Levoxyl. Rest of medication was continued as per previous. Paper work for discharge done. Discharge medication reconciliation done. Total time spent on discharge day 31 minutes. The patient is seen and examined at bedside today. Please see my progress note from today for further detail.
== END 2017-09-05 17:25 | DRG 536 ==
LOC: SCSER 20:48 → SURG A 09-01 01:27
PROVIDERS: ADMIT Family Medicine; ATTEND Family Medicine
DX: S32.592A Other specified fracture of left pubis, initial encounter for closed fracture (principal); L03.115 Cellulitis of right lower limb; L97.929 Non-pressure chronic ulcer of unspecified part of left lower leg with unspecified severity; L97.919 Non-pressure chronic ulcer of unspecified part of right lower leg with unspecified severity; I87.8 Other specified disorders of veins; I87.2 Venous insufficiency (chronic) (peripheral); R53.81 Other malaise; K21.9 Gastro-esophageal reflux disease without esophagitis; S32.512A Fracture of superior rim of left pubis, initial encounter for closed fracture; E03.9 Hypothyroidism, unspecified; M19.90 Unspecified osteoarthritis, unspecified site; M81.0 Age-related osteoporosis without current pathological fracture
CPT/HCPCS: 36415; 72170; 72192; 80048; 80053; 80202; 82607; 82746; 83605; 83735; 84443; 85025; 87040; 93970; 96365; 96367; 96375; 96376; J2270; A4216; G8978-GP-CL; G8979-GP-CJ; G8987-GO-CM; G8988-GO-CJ; J0696; J1650; J3370; J3490; J7050

== ENCOUNTER 2018-05-01 13:43 | Outpatient (CLI) | payer BC, MEDICARE ==
[2018-05-01] MEDS ORDERED: Sodium Chloride 0.9% 15 ML NEB ONE (13:48)
--- NOTE | 2018-05-01 15:40 | PRG ---
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 The patient previously underwent venous ablation on the right on two occasions by Dr. Cherise Jauregui. The patient states that all of the ulcerations of the right lower leg have healed completely. She states she is presently utilizing compression garments, which yield a compression of 40 to 60 mmHg. The patient states that after an admission to [facility] after a pelvic fracture, she received wound care for the ulcerations of her right and left lower legs, which included Medihoney. PHYSICAL EXAMINATION: VITAL SIGNS: Temperature 98.0, pulse 75, respirations 18, and blood pressure 141/63. EXTREMITIES: An ulceration of the left posterolateral lower leg is present, which measures approximately 1.4 x 2.0 cm. Granulation tissue is present within the wound margins. Nonviable tissue present within the wound margins was debrided with an excisional full-thickness debridement with the use of a curette. No purulent drainage is associated with the wound. Erythema of the skin surrounding the wound is present and appears secondary to stasis changes as opposed to an infectious process. No maceration of the skin of the periwound is noted. A dorsalis pedis pulse is easily palpable on the left. No significant edema of the right or left foot or lower legs is present on exam today. ASSESSMENT AND PLAN: 1. Varicose veins with ulcer and inflammation. As stated above, the patient has only one ulceration of the left posterolateral lower leg remaining. Dressing changes of Medihoney followed by Mepilex border will be initiated today. These dressing changes are to be performed 3 times per week after cleansing and irrigation. The patient will be performing her own dressing changes. She is to utilize her compression garments in conjunction with the preceding dressing changes. The patient states she will schedule an appointment in the Wound Center if the remaining left posterolateral lower leg ulceration fails to heal with the preceding regimen. 2. Lymphedema tarda. The patient previously declined in-home lymphedema therapy with a pneumatic pump. She states she declined in-home lymphedema therapy after receiving the pump. 3. Hypothyroidism. 4. Gastroesophageal reflux disease. 5. Irritable bowel syndrome. 6. Osteoarthritis. 7. Multiple allergies. Job ID: [id number]
== END 2018-05-01 13:44 | disposition home or self-care (01) ==
LOC: WCC 13:43
PROVIDERS: ATTEND Family Medicine
DX: I83.228 Varicose veins of left lower extremity with both ulcer of other part of lower extremity and inflammation (principal); I89.0 Lymphedema, not elsewhere classified; E03.9 Hypothyroidism, unspecified; K21.9 Gastro-esophageal reflux disease without esophagitis; M19.90 Unspecified osteoarthritis, unspecified site; K58.9 Irritable bowel syndrome, unspecified; T78.40XD Allergy, unspecified, subsequent encounter
CPT/HCPCS: A4218

== ENCOUNTER 2018-08-05 03:52 | Emergency (ER) | payer BC, MEDICARE ==
[2018-08-05] MEDS ORDERED: Acetaminophen 500 MG TAB ONE (04:27)
--- NOTE | 2018-08-05 07:21 | CT ---
CT OF THE BRAIN WITHOUT CONTRAST: Date: 08/05/18 INDICATION: Fall from bed with head pain. COMPARISON: Prior exam dated 12/21/16. FINDINGS: The septum pellucidum and third ventricle are midline. Mild generalized cerebral atrophy is stable. M ild chronic small vessel white matter ischemic change is similar appearing. No acute infarct, hemorrh age, or hydrocephalus is present. The skull and extracranial soft tissues appear within normal limits . IMPRESSION: No acute intracranial abnormality. POS: [facility]
--- NOTE | 2018-08-05 07:33 | CT ---
CT CERVICAL SPINE WITHOUT CONTRAST: Date: 08/05/18 INDICATION: Fall from bed with neck pain. COMPARISON: Prior CT cervical spine dated 12/15/15. FINDINGS: There is a nondisplaced, incomplete fracture involving the odontoid base, left of midline, best seen on image 12 and image 13 of coronal series. An additional nondisplaced fracture is seen involving the superior articular facet of C2, best seen on image 18 of axial series, and image 16 of sagittal seri es. There is ankylosis of the right C2-C3 facets. There is advanced multilevel disc degenerative and facet osteoarthritic change at C4-5 through C6-7. No additional acute fracture is evident. Small bone island is seen within the left aspect of C1. There is some suspected interstitial scarring involving the lung apices. No pneumothorax is evident. IMPRESSION: 1. Nondisplaced base fracture of the odontoid process. There is an additional nondisplaced fracture involving the right C2 articular facet. 2. Severe multilevel spondylosis of cervical spine. POS: [facility]
== END 2018-08-05 06:00 | disposition home or self-care (01) ==
LOC: SCSER 03:52
DX: S12.101A Unspecified nondisplaced fracture of second cervical vertebra, initial encounter for closed fracture (principal); S90.511A Abrasion, right ankle, initial encounter; S09.90XA Unspecified injury of head, initial encounter; F41.9 Anxiety disorder, unspecified; F32.9 Major depressive disorder, single episode, unspecified; Z79.899 Other long term (current) drug therapy; W06.XXXA Fall from bed, initial encounter
CPT/HCPCS: 70450; 72125

== ENCOUNTER 2018-08-22 10:50 | Outpatient (CLI) | payer BC ==
--- NOTE | 2018-08-22 11:35 | RAD ---
CERVICAL SPINE THREE VIEWS: HISTORY: S12.9XXA, fracture of neck, initial encounter. Neck injury following fall in July 2018. COMPARISON: CT cervical spine from 08/12/2018. FINDINGS: The previously noted, nondisplaced fracture through C2 is poorly demonstrated on this study. There i s no evidence for an obvious displaced fracture or significant malalignment. Disk osteophytosis, par ticularly at C4-C5, C5-C6, and C6-C7. Bony demineralization. No significant prevertebral soft tissu e swelling. IMPRESSION: Previously noted, nondisplaced C2 fracture, seen on prior CT scan, is poorly demonstrated on this soren dy. No malalignment or evidence for displaced fracture. POS: [facility]
== END 2018-08-22 10:51 | disposition home or self-care (01) ==
LOC: SJX 10:50
PROVIDERS: ATTEND Neurological Surgery
DX: S12.101D Unspecified nondisplaced fracture of second cervical vertebra, subsequent encounter for fracture with routine healing (principal)
CPT/HCPCS: 72040

== ENCOUNTER 2018-08-28 11:38 | Outpatient (CLI) | payer BC ==
--- NOTE | 2018-08-28 17:48 | PRG ---
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 The patient previously underwent venous ablation on the right on [address] Alma Jauregui. The patient again states that all of the ulcerations of the right lower leg have healed completely. The patient today states that she is presently utilizing compression garments, which yield a compression of 30 to 40 mmHg. The patient previously stated that after an admission to [facility] after a pelvic fracture, she received wound care for the ulcerations of her right and left lower legs, which included Medihoney. Today, the patient states that the ulceration of her left lower leg has worsened in its appearance after she suffered a nondisplaced cervical fracture, which required immobilization in a C-collar and a decrease in her level of activity. PHYSICAL EXAMINATION: VITAL SIGNS: Temperature 97.9, pulse 77, respirations 17, and blood pressure 98 /53. EXTREMITIES: A full-thickness ulceration of the left posterolateral lower leg is present, which measures approximately 4.0 x 3.5 x 0.1 cm. The dimensions of the wound at the time of the patient's visit on 05/01/2018 were approximately 1.4 x 2.0 cm. Granulation tissue is present within the wound margins. Moderate serosanguinous drainage is associated with the wound. Erythema of the skin surrounding the wound is present and appears to be secondary to stasis changes as opposed to an infectious process. No maceration of the skin of the periwound is noted. No significant edema of the left lower leg is appreciated on exam today. ASSESSMENT AND PLAN: 1. Varicose veins with ulcer and inflammation. The patient has only one ulceration of the left posterolateral lower leg remaining. Dressing changes of Xeroform and Mepilex border will be initiated today. Dressing changes of Medihoney will be discontinued. These dressing changes are to be performed 3 times per week after cleansing and irrigation. The patient will continue to perform her own dressing changes. The patient is to utilize her compression garment in conjunction with the preceding dressing changes. The patient states she will contact the Wound Center in order to schedule her next visit. 2. Lymphedema tarda. The patient previously declined in-home lymphedema therapy with a pneumatic pump. The patient stated that she declined in-home lymphedema therapy after receiving the pump. 3. Hypothyroidism. 4. Gastroesophageal reflux disease. 5. Irritable bowel syndrome. 6. Osteoarthritis. 7. Multiple allergies. Job ID: [id number] MTDD
[2018-08-28] MEDS ORDERED: Sodium Chloride 0.9% 15 ML NEB ONE (18:00)
== END 2018-08-28 11:39 | disposition home or self-care (01) ==
LOC: WCC 11:38
PROVIDERS: ATTEND Family Medicine
DX: I83.228 Varicose veins of left lower extremity with both ulcer of other part of lower extremity and inflammation (principal); I89.0 Lymphedema, not elsewhere classified; E03.9 Hypothyroidism, unspecified; K21.9 Gastro-esophageal reflux disease without esophagitis; K58.9 Irritable bowel syndrome, unspecified; M19.90 Unspecified osteoarthritis, unspecified site; T78.40XD Allergy, unspecified, subsequent encounter
CPT/HCPCS: 97602; A4218

== ENCOUNTER 2018-09-19 10:51 | Outpatient (CLI) | payer BC ==
--- NOTE | 2018-09-19 11:21 | RAD ---
4 views cervical spine HISTORY: History of cervical spine fracture. Changes of spondylosis seen at the C4-5, C5-6 and C6-7 levels. Previous and noted odontoid fracture not visible on plain film radiography. IMPRESSION: no definite visible evidence of odontoid fracture seen.
== END 2018-09-19 10:52 | disposition home or self-care (01) ==
LOC: TBSIIMAG 10:51
PROVIDERS: ATTEND Neurological Surgery
DX: S12.9XXA Fracture of neck, unspecified, initial encounter (principal)
CPT/HCPCS: 72040

== ENCOUNTER 2018-09-26 14:19 | Outpatient (CLI) | payer BC ==
--- NOTE | 2018-09-26 14:54 | RAD ---
3 VIEWS CERVICAL SPINE INCLUDING AP AND LATERAL AND MULTIPLE OPEN MOUTH ODONTOID VIEWS CERVICAL SPINE : HISTORY: 73-year-old with history of cervical spine fracture. FINDINGS: Images demonstrate loss of the normal lordotic curvature of the cervical spine. Previously noted left C2 fracture does not appear to have significantly displaced. No definite visibl e evidence of a persistent fracture line seen. Multilevel changes of spondylosis seen at C4-5, C5-6, and C6-7. IMPRESSION: Mid cervical changes of spondylosis. Transcribed Date/Time: 09/26/2018 3:01 PM
== END 2018-09-26 14:20 | disposition home or self-care (01) ==
LOC: SCSRAD 14:19
PROVIDERS: ATTEND Neurological Surgery
DX: S12.9XXD Fracture of neck, unspecified, subsequent encounter (principal); M47.812 Spondylosis without myelopathy or radiculopathy, cervical region
CPT/HCPCS: 72040

== ENCOUNTER 2018-10-09 11:25 | Outpatient (CLI) | payer BC ==
[~2018-10-09 11:25] MED LIST: Sodium Chloride 0.9% 15 ML NEB ONE
--- NOTE | 2018-10-09 13:09 | PRG ---
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 The patient previously underwent venous ablation on the right on [address] Xavi Jauregui. The ulcerations of the right lower leg have healed completely and remains healed. The patient continues to utilize compression garments, which yield a compression of 30 to 40 mmHg. Today, the patient presents to the Wound Center with a dressing of Mepilex Border followed by her compression stocking for the left posterior lateral lower leg ulceration. PHYSICAL EXAMINATION: VITAL SIGNS: Temperature 98.2, pulse 82, respirations 17, blood pressure 114/59. EXTREMITIES: A full-thickness ulceration of the left posterior lateral lower leg is present, which measures approximately 4.6 x 3.4 cm. The dimensions of the wound at the time of the patient's visit on 08/28/2018 were approximately 4.0 x 3.5 cm. Granulation tissue is present within the wound margins. Moderate green serosanguineous drainage is associated with the wound. The erythema of the skin surrounding the wound is present and appears to be secondary to stasis changes as opposed to an infectious process. No maceration of the skin of the periwound is noted. No significant edema of the left lower leg is appreciated on exam today. ASSESSMENT AND PLAN: 1. Varicose veins with ulcer and inflammation. The patient has only 1 ulceration of the left posterior lateral lower leg remaining. Dressing changes of Xeroform gauze and Allevyn will be continued 3 times per week after cleansing and irrigation. The patient will continue to perform her own dressing changes. She is also to utilize her compression garment in conjunction with the preceding dressing changes. The patient states that she underwent venous ablation by in the remote past. She states that she underwent venous duplex exam in August of 2017 at [facility]. I will discuss the treatment plan with Dr. Jauregui. 2. Lymphedema tarda. The patient previously declined in-home lymphedema therapy with a pneumatic pump. The patient stated that she declined in-home lymphedema therapy after receiving the pump. 3. Hypothyroidism. 4. Gastroesophageal reflux disease. 5. Irritable bowel syndrome. 6. Osteoarthritis. 7. Multiple allergies. Job ID: [id number]
== END 2018-10-09 11:26 | disposition home or self-care (01) ==
LOC: WCC 11:25
PROVIDERS: ATTEND Family Medicine
DX: I83.228 Varicose veins of left lower extremity with both ulcer of other part of lower extremity and inflammation (principal); L97.929 Non-pressure chronic ulcer of unspecified part of left lower leg with unspecified severity; T78.40XD Allergy, unspecified, subsequent encounter; I89.0 Lymphedema, not elsewhere classified; M19.90 Unspecified osteoarthritis, unspecified site; K58.9 Irritable bowel syndrome, unspecified; K21.9 Gastro-esophageal reflux disease without esophagitis; E03.9 Hypothyroidism, unspecified
CPT/HCPCS: 97602; A4218

== ENCOUNTER 2018-11-28 08:54 | Outpatient (CLI) | payer BC ==
--- NOTE | 2018-11-28 10:39 | PRG ---
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 The patient previously underwent venous ablation on the right on [address] Xavi Jauregui. The ulcerations of the right lower leg have healed completely and remains healed. The patient continues to utilize compression garments, which yield a compression of 30 to 40 mmHg. Today, the patient presents to the wound center with a dressing of Acticoat and Xeroform gauze followed by Mepilex border and her compression stocking for the left posterolateral lower leg ulceration. PHYSICAL EXAMINATION: VITAL SIGNS: Temperature 97.6, pulse 81, respirations 16, blood pressure 148/62. EXTREMITIES: An ulceration of the left posterolateral lower leg is present, which measures approximately 6.3 x 5.4 cm. The dimensions of the wound at the time of the patient's visit on 10/09/2018, were approximately 4.6 x 3.4 cm. Granulation tissue is present within the wound margins. No purulent drainage is associated with the wound. Erythema of the left lower leg is present. No maceration of the skin of the periwound is noted. No significant edema of the left lower leg is appreciated on exam today. ASSESSMENT AND PLAN: 1. Varicose veins with ulcer and inflammation. Cellulitis of the left lower leg is also present. The patient has only one ulceration of the left posterolateral lower leg remaining for this wound. Dressing changes of Xeroform gauze and Mepilex will be continued 3 times per week after cleansing and irrigation. The patient is to continue to perform her own dressing changes. She is also to utilize her compression garment in conjunction with the preceding dressing changes. The patient will be referred to Dr. Jauregui for evaluation for venous ablation on the left. As stated above, the patient underwent venous ablation on the right on [address] Jauregui. 2. Lymphedema tarda. The patient previously declined in-home lymphedema therapy with a pneumatic pump. The patient stated that she declined in-home lymphedema therapy after receiving the pump. 3. Hypothyroidism. 4. Gastroesophageal reflux disease. 5. Irritable bowel syndrome. 6. Osteoarthritis. 7. Multiple allergies. Job ID: [id number]
[2018-11-28] MEDS ORDERED: Lidocaine 2% PF 100 mg/5 ml Syringe ONE (11:11)
[2018-11-28] MEDS ORDERED: Sodium Chloride 0.9% 15 ML NEB ONE (11:11)
== END 2018-11-28 08:55 | disposition home or self-care (01) ==
LOC: WCC 08:54
PROVIDERS: ATTEND Family Medicine
DX: I83.028 Varicose veins of left lower extremity with ulcer other part of lower leg (principal); L97.929 Non-pressure chronic ulcer of unspecified part of left lower leg with unspecified severity; I89.0 Lymphedema, not elsewhere classified; E03.9 Hypothyroidism, unspecified; K21.9 Gastro-esophageal reflux disease without esophagitis; K58.9 Irritable bowel syndrome, unspecified; M19.90 Unspecified osteoarthritis, unspecified site; T78.40XA Allergy, unspecified, initial encounter
CPT/HCPCS: 97602; A4218; J2001

== ENCOUNTER 2018-12-26 09:44 | Outpatient (CLI) | payer MEDICARE, BC ==
[~2018-12-26 09:44] MED LIST changes: +Lidocaine 2% PF 100 mg/5 ml Syringe ONE
--- NOTE | 2018-12-26 11:34 | PRG ---
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 The patient previously underwent venous ablation on the right on [address] Xavi Jauregui. The ulcerations of the right lower leg have healed completely and remain healed. The patient continues to utilize compression garments, which yield a compression of 30 to 40 mmHg. The patient states that she has been seen by Dr. Jauregui for the ulceration of her left lower leg. The patient states that she may undergo venous ablation on the left. PHYSICAL EXAMINATION: VITAL SIGNS: Temperature 97.2, pulse 89, respirations 19, and blood pressure 120/61. EXTREMITIES: An ulceration of the left posterolateral lower leg is present, which measures approximately 5.0 x 3.5 cm. The dimensions of the wound at the time of the patient's visit on 11/28/2018 were approximately 6.3 x 5.4 cm. Granulation tissue is present within the wound margins. Nonviable tissue is also present within the wound margins. Tissue cultures were obtained with the use of scissors and sent for aerobic and anaerobic studies. No purulent drainage is associated with the wound. Erythema of the skin surrounding the wound is present. No maceration of the skin of the periwound is noted. No significant edema of the left lower leg is appreciated on exam today. ASSESSMENT AND PLAN: 1. Varicose veins with ulcer and inflammation. Cellulitis of the left lower leg is also present. The patient has been given a prescription for clindamycin #30, 300 mg one p.o. t.i.d. x10 days. Antibiotic therapy will be modified based upon the results of the tissue cultures. Arrangements will also be made for the home delivery of Santyl. The patient is then to perform dressing changes of Santyl in conjunction with gauze on a daily basis after cleansing and irrigation. The patient has been told that ABDs may be utilized in conjunction with her dressing changes. She is to continue to utilize her compression garment while performing dressing changes of Santyl. The patient will continue to perform her own dressing changes. 2. Lymphedema tarda. 3. Hypothyroidism. 4. Gastroesophageal reflux disease. 5. Irritable bowel syndrome. 6. Osteoarthritis. 7. Multiple allergies. Job ID: [id number]
== END 2018-12-26 09:45 | disposition home or self-care (01) ==
LOC: WCC 09:44
PROVIDERS: ATTEND Family Medicine
DX: I83.892 Varicose veins of left lower extremity with other complications (principal); I89.0 Lymphedema, not elsewhere classified; E03.9 Hypothyroidism, unspecified; K21.9 Gastro-esophageal reflux disease without esophagitis; K58.9 Irritable bowel syndrome, unspecified; M19.90 Unspecified osteoarthritis, unspecified site; T78.40XA Allergy, unspecified, initial encounter
CPT/HCPCS: 87070; 87077; 87186; 87205; A4218; J2001

== ENCOUNTER 2020-07-05 13:47 | Outpatient (CLI) | payer MEDICARE, BC | END 2020-07-05 13:48 | disposition home or self-care (01) | LOC: BICRAD 13:47 | PROVIDERS: ATTEND Internal Medicine Pulmonary Disease | DX: R06.00 Dyspnea, unspecified (principal); R91.8 Other nonspecific abnormal finding of lung field | CPT/HCPCS: 71046 ==

== ENCOUNTER 2020-08-31 15:05 | Outpatient (CLI) | payer MEDICARE, BC ==
[2020-09-01 01:14] LABS: SARS-CoV-2 PCR by NAA Not Detected (NotDetected)
== END 2020-08-31 15:06 | disposition home or self-care (01) ==
LOC: LABBT 15:05
PROVIDERS: ATTEND Internal Medicine Gastroenterology
DX: Z01.812 Encounter for preprocedural laboratory examination (principal); Z20.822 Contact with and (suspected) exposure to COVID-19
CPT/HCPCS: U0003; U0005; 87635

== ENCOUNTER 2020-09-03 08:12 | Day surgery (SDC) | payer MEDICARE, BC ==
[2020-09-02 11:34] VITALS: BMI 24.2
[2020-09-03] MEDS ORDERED: PROPOFOL 200 MG/20 ML VIAL ONE (10:09)
[2020-09-03] MEDS ORDERED: Lidocaine 1% PF 5 ML VIAL ONE (10:09)
== END 2020-09-03 11:22 | disposition home or self-care (01) ==
LOC: SDC 08:12
PROVIDERS: ATTEND Internal Medicine Gastroenterology
PROC: 0D758ZZ Dilation of Esophagus, Via Natural or Artificial Opening Endoscopic (ICD-10-PCS; principal; 2020-09-03)
DX: K21.00 Gastro-esophageal reflux disease with esophagitis, without bleeding (principal); K22.2 Esophageal obstruction; K44.9 Diaphragmatic hernia without obstruction or gangrene; D64.9 Anemia, unspecified; M19.90 Unspecified osteoarthritis, unspecified site; J45.909 Unspecified asthma, uncomplicated; E07.9 Disorder of thyroid, unspecified; K58.9 Irritable bowel syndrome, unspecified; Z79.899 Other long term (current) drug therapy; Z88.0 Allergy status to penicillin; Z88.1 Allergy status to other antibiotic agents; Z88.2 Allergy status to sulfonamides; Z88.8 Allergy status to other drugs, medicaments and biological substances; Z91.013 Allergy to seafood
CPT/HCPCS: J2704

== ENCOUNTER 2021-02-07 10:40 | Outpatient (CLI) | payer MEDICARE, BC | END 2021-02-07 10:41 | disposition home or self-care (01) | LOC: RAD 10:40 | PROVIDERS: ATTEND Internal Medicine Pulmonary Disease | DX: R06.00 Dyspnea, unspecified (principal) | CPT/HCPCS: 71046 ==

== ENCOUNTER 2024-01-22 09:04 | Inpatient (IN) | payer MEDICARE ==
[2024-01-23] MEDS ORDERED: Rocuronium Bromide 10 MG/ML (10ML VIAL) ONE (12:30)
[2024-01-23] MEDS ORDERED: Lidocaine 1% PF 5 ML VIAL ONE (12:30)
[2024-01-23] MEDS ORDERED: fentaNYL PF 100 MCG/2 ML SYRINGE ONE ×2 (12:30→12:57)
[2024-01-23] MEDS ORDERED: PROPOFOL 20 ML ONE (12:30)
[2024-01-23] MEDS ORDERED: SUGAMMADEX SODIUM 200 MG/2 ML VIAL ONE ×2 (13:01→15:34)
[2024-01-23] MEDS ORDERED: Heparin 5,000 UNITS/ML VIAL ONE (13:37)
[2024-01-23] MEDS ORDERED: Acetaminophen 500 MG TAB ONE (13:38)
[2024-01-23] MEDS ORDERED: metroNIDAZOLE 500 MG (100 mL) BAG ONE (13:38)
[2024-01-23] MEDS ORDERED: Bupivacaine 0.25% HCL 30 ML VIAL ONE (13:40)
[2024-01-23] MEDS ORDERED: EPINEPHrine 1 MG/ML VIAL ONE (13:40)
[2024-01-23] MEDS ORDERED: Sodium Chloride 0.9% 100 ML ONE (13:44)
[2024-01-23] MEDS ORDERED: CEFAZOLIN 2 GM VIAL ONE (13:44)
[2024-01-23] MEDS ORDERED: PHENYLEPHRINE-NS 100 MCG/ML 10 ML SYRINGE ONE (14:14)
[2024-01-23] MEDS ORDERED: Dexamethasone 20 MG/5 ML VIAL ONE (14:24)
[2024-01-23] MEDS ORDERED: ePHEDrine Sulfate 50 MG/10 ML VIAL ONE (14:40)
[2024-01-23] MEDS ORDERED: Ondansetron PF 4 MG/2 ML Vial ONE (15:32)
[2024-01-23] MEDS ORDERED: Ondansetron PF 4 MG/2 ML Vial IVP PRN (15:46)
[2024-01-23] MEDS ORDERED: hydrALAZINE 20 MG/ML VIAL SLOW IVP PRN (15:46)
[2024-01-23] MEDS ORDERED: Ipratropium/Albuterol 3 ML NEB NEB PRN (15:46)
[2024-01-23] MEDS ORDERED: Promethazine HCl 25 MG/ML VIAL IM PRN ×2 (15:46→16:01)
[2024-01-23] MEDS ORDERED: Ondansetron HCl/PF 4 MG/2 ML Vial IVP PRN (16:01)
[2024-01-23] MEDS ORDERED: Morphine Sulfate 2 MG/ML SYRINGE SLOW IVP PRN (16:01)
[2024-01-23] MEDS ORDERED: HYDROmorphone 2 MG/ML VIAL SLOW IVP PRN (16:01)
[2024-01-23] MEDS ORDERED: PACU-Morphine 4MG/ML VIAL SLOW IVP PRN (16:01)
[2024-01-23] MEDS ORDERED: fentaNYL 50 mcg/mL 1 mL Vial ONE ×2 (17:05→18:50)
[2024-01-23] MEDS ORDERED: Enoxaparin 30 MG (0.3 mL) SYRINGE SC SCH (21:00)
[2024-01-23] MEDS: Famotidine 20 MG TAB PO SCH (21:55)
[2024-01-23] MEDS: traMADol HCl 50 MG TAB PO PRN (21:56)
[2024-01-23] MEDS: Famotidine/PF 20 mg/2ml Vial SLOW IVP SCH (21:56)
[2024-01-23] MEDS: Enoxaparin 40 MG (0.4 mL) SYRINGE SC SCH (21:56)
[2024-01-23 22:23] VITALS: BMI 23.8
[2024-01-24] MEDS: Sodium Chloride 0.9% 1,000 ML IV SCH ×2 (00:15→04:34)
[2024-01-24 05:57] LABS: #Basophils Less than 0.03 10x3/uL (0.0-0.2); #Eosinophils Less than 0.03 10x3/uL (0.0-0.7); %Basophils 0.1 % (0.0-1.0); %Lymphocytes 13.4 % (21.0-51.0); %Monocytes 11.3 % (0.0-10.0); %Neutrophils 74.9 % (42.0-75.0); Hematocrit 32.4 % (36.0-47.0); Hemoglobin 9.8 g/dL (12.0-16.0); Mean Corpuscular HGB CONC 30.2 g/dL (32.0-36.0); Mean Corpuscular Hemoglobin 27.3 pg (27.0-31.0); Mean Corpuscular Volume 90.3 fL (78.0-98.0); Mean Platelet Volume 8.4 fL (7.4-10.4); Platelet Count 313 10x3/uL (130-400); RBC Distribution Width 13.4 % (11.5-14.5); Red Blood Cell (RBC) Count 3.59 mill/uL (4.20-5.40)
[2024-01-24] MEDS: Levothyroxine Sodium 125 MCG TAB PO SCH (06:23)
[2024-01-24 06:43] LABS: Anion Gap 10 mmol/L (10-20); BUN (Urea Nitrogen) 12 mg/dL (9.8-20.1); Calc. Creatinine Clearance 77 mL/min (70-130); Calcium 8.1 mg/dL (7.8-10.44); Carbon Dioxide 24 mmol/L (23-31); Chloride 110 mmol/L (98-107); Estimated GFR 93; Glucose 97 mg/dL (83-110); Potassium 3.5 mmol/L (3.5-5.1); Sodium 140 mmol/L (136-145)
[2024-01-24 18:02] VITALS: BMI 23.8
[2024-01-24] MEDS: traMADol HCl 50 MG TAB PO PRN (22:07)
[2024-01-28] MEDS: FLU (Fluad Triv) TS24-25 (65UP)/MF59C/PF 45 MCG/0.5 ML Syringe IM ONE (07:56)
[2024-01-29 16:24] VITALS: BP 98/65; TEMP 97.6
== END 2024-01-29 18:41 | DRG 331 ==
LOC: EDSTATUS 09:11 → SURG A 01-23 12:12 → SURG B 01-23 20:52
PROVIDERS: ADMIT Surgery; ATTEND Surgery
PROC: 0DSP4ZZ Reposition Rectum, Percutaneous Endoscopic Approach (ICD-10-PCS; principal; 2024-01-23)
PROC: 0DUP4JZ Supplement Rectum with Synthetic Substitute, Percutaneous Endoscopic Approach (ICD-10-PCS; 2024-01-23)
PROC: 8E0W4CZ Robotic Assisted Procedure of Trunk Region, Percutaneous Endoscopic Approach (ICD-10-PCS; 2024-01-23)
PROC: 0JQC3ZZ Repair Pelvic Region Subcutaneous Tissue and Fascia, Percutaneous Approach (ICD-10-PCS; 2024-01-23)
PROC: 3E033XZ Introduction of Vasopressor into Peripheral Vein, Percutaneous Approach (ICD-10-PCS; 2024-01-23)
DX: K62.3 Rectal prolapse (principal); K46.9 Unspecified abdominal hernia without obstruction or gangrene; R33.9 Retention of urine, unspecified; E03.9 Hypothyroidism, unspecified; Z79.899 Other long term (current) drug therapy; Z88.0 Allergy status to penicillin; N81.10 Cystocele, unspecified
CPT/HCPCS: 36415; 71045; 80048; 85025; 93005; 93010; 97139; A4314; C1781; J0171; J0665; J1100; J1644; J1650; J2405; J2704; J3010; J3490; J7030

== ENCOUNTER 2024-02-08 20:11 | Emergency (ER) | payer MEDICARE ==
[~2024-02-08 20:11] MED LIST changes: +Iopamidol-370 76% 500 ML MDV (1 ML CHARGE) ONE; -Lidocaine 2% PF 100 mg/5 ml Syringe ONE; -Sodium Chloride 0.9% 15 ML NEB ONE
[2024-02-08 20:43] LABS: #Basophils Less than 0.03 10x3/uL (0.0-0.2); #Eosinophils Less than 0.03 10x3/uL (0.0-0.7); %Lymphocytes 18.5 % (21.0-51.0); %Monocytes 11.2 % (0.0-10.0); Hematocrit 37.1 % (36.0-47.0); Hemoglobin 11.6 g/dL (12.0-16.0); Mean Corpuscular HGB CONC 31.3 g/dL (32.0-36.0); Mean Corpuscular Hemoglobin 27.3 pg (27.0-31.0); Mean Corpuscular Volume 87.3 fL (78.0-98.0); Mean Platelet Volume 8.2 fL (7.4-10.4); Platelet Count 370 10x3/uL (130-400); RBC Distribution Width 13.4 % (11.5-14.5); Red Blood Cell (RBC) Count 4.25 mill/uL (4.20-5.40)
[2024-02-08 20:58] LABS: ALT (SGPT) 14 U/L (8-55); AST (SGOT) 14 U/L (5-34); Albumin 3.3 g/dL (3.4-4.8); Alkaline Phosphatase 80 U/L (40-110); Anion Gap 12 mmol/L (10-20); BUN (Urea Nitrogen) 22 mg/dL (9.8-20.1); Bilirubin, Total 0.2 mg/dL (0.2-1.2); Calc. Creatinine Clearance 0 mL/min (70-130); Calcium 9.2 mg/dL (7.8-10.44); Carbon Dioxide 28 mmol/L (23-31); Chloride 105 mmol/L (98-107); Estimated GFR 92; Globulin 3.3 g/dL (2.4-3.5); Glucose 128 mg/dL (83-110); Potassium 3.8 mmol/L (3.5-5.1); Protein, Total 6.6 g/dL (5.8-8.1); Sodium 141 mmol/L (136-145)
[2024-02-09 00:41] LABS: Bacteria/HPF 2+ HPF (None Seen); Bilirubin Negative (Negative); Blood, Urine 2+ (Negative); CAUTI Indications for Culture Pelvic or flank pain; Calcium Oxalate Crystals 1+ HPF (None Seen); Clarity Turbid (Clear); Glucose, Urine (Dipstick) Normal (Negative); Ketone, Urine Negative (Negative); Leukocyte 500 Leu/uL (Negative); Nitrite 2+ (Negative); Protein, Urine (Dipstick) 20 mg/dL (Neg-Trace); RBC/HPF Greater than 50 HPF (0-3); Specific Gravity, Urine 1.053 (1.002-1.036); Squamous Epithelial None Seen HPF (0-3); Urobilinogen Normal mg/dL (Less than 2); WBC/HPF Greater than 50 HPF (0-3); Yeast-Budding Rare HPF (None Seen); pH, Urine 6.5 (5.0-9.0)
[2024-02-09 00:42] LABS: Urine Culture Reflex Yes Yes
== END 2024-02-09 01:40 | disposition home or self-care (01) ==
LOC: ERS 20:11
DX: T83.038A Leakage of other urinary catheter, initial encounter (principal); N39.0 Urinary tract infection, site not specified; Z79.899 Other long term (current) drug therapy
CPT/HCPCS: 74177; 80053; 81001; 85025; 87077; 87086; 87186; Q9967; 36415; 51702

== ENCOUNTER 2024-12-03 01:05 | Inpatient (IN) | payer MEDICARE ==
[2024-12-03] MEDS ORDERED: Ondansetron PF 4 MG/2 ML Vial ONE (01:16)
[2024-12-03] MEDS ORDERED: HYDROmorphone 0.5 MG/0.5 ML SYRINGE ONE (01:46)
[2024-12-03 01:55] LABS: #Basophils Less than 0.03 10x3/uL (0.0-0.2); #Eosinophils Less than 0.03 10x3/uL (0.0-0.7); #Monocytes 1.14 10x3/uL (0.11-0.59); #Neutrophils 16.99 10x3/uL (1.40-6.50); %Basophils 0.1 % (0.0-1.0); %Eosinophils 0.0 % (0.0-10.0); %Lymphocytes 7.9 % (21.0-51.0); %Monocytes 5.8 % (0.0-10.0); %Neutrophils 85.6 % (42.0-75.0); Hematocrit 37.2 % (36.0-47.0); Hemoglobin 12.1 g/dL (12.0-16.0); Mean Corpuscular Hemoglobin 28.2 pg (27.0-31.0); Mean Corpuscular Volume 86.7 fL (78.0-98.0); Platelet Count 346 10x3/uL (130-400); Red Blood Cell (RBC) Count 4.29 mill/uL (4.20-5.40); White Blood Cell (WBC) Count 19.82 10x3/uL (4.8-10.8)
[2024-12-03 02:14] LABS: Anion Gap 18 mmol/L (10-20); Chloride 101 mmol/L (98-107); Potassium 3.5 mmol/L (3.5-5.1); Sodium 136 mmol/L (136-145)
[2024-12-03 02:24] LABS: ALT (SGPT) 19 U/L (Less than 34); AST (SGOT) 35 U/L (11-34); Albumin 4.0 g/dL (3.1-4.5); Alkaline Phosphatase 87 U/L (40-110); BUN (Urea Nitrogen) 26 mg/dL (9.8-20.1); Bilirubin, Total 0.4 mg/dL (0.3-1.2); Calc. Creatinine Clearance 0 mL/min (70-130); Calcium 9.4 mg/dL (7.8-10.44); Carbon Dioxide 22 mmol/L (23-31); Globulin 3.6 g/dL (2.4-3.5); Glucose 173 mg/dL (83-110); Lipase 47 U/L (8-78)
[2024-12-03] MEDS ORDERED: Ketorolac Tromethamine 30 MG (1 mL) VIAL ONE (03:43)
[2024-12-03 04:34] LABS: Bacteria/HPF None Seen HPF (None Seen); CAUTI Indications for Culture Pelvic or flank pain; Glucose, Urine (Dipstick) Normal (Negative); Leukocyte Negative Leu/uL (Negative); Protein, Urine (Dipstick) Negative (Neg-Trace); RBC/HPF 0-3 HPF (0-3); WBC/HPF 0-3 HPF (0-3)
[2024-12-03 04:35] LABS: Specific Gravity, Urine Greater than 1.050 (1.002-1.036); Urine Culture Reflex No No
[2024-12-03] MEDS ORDERED: cefTRIAXone (ROCEPHIN) 1 GM VIAL ONE (05:15)
[2024-12-03 10:25] VITALS: BMI 24.1
[2024-12-03] MEDS ORDERED: Iopamidol-370 76% 500 ML MDV (1 ML CHARGE) ONE (11:12)
[2024-12-03] MEDS: Ketorolac Tromethamine 30 MG (1 mL) VIAL IVP SCH (11:34)
[2024-12-03] MEDS: Enoxaparin 40 MG (0.4 mL) SYRINGE SC SCH (11:35)
[2024-12-03] MEDS: LevoFLOXacin 500 mg/D5W 500 MG in Premix 1 BAG IVPB SCH (11:35)
[2024-12-03] MEDS: Floranex 1 GM Packet PO SCH (11:41)
[2024-12-03] MEDS: Pantoprazole 40 MG VIAL IVP SCH ×2 (11:41→11:42)
[2024-12-03] MEDS: Ondansetron PF 4 MG/2 ML Vial IVP PRN (11:50)
[2024-12-03 12:10] LABS: Magnesium 1.9 mg/dL (1.6-2.6)
[2024-12-03] MEDS: HYDROmorphone 0.5 MG/0.5 ML SYRINGE SLOW IVP SCH (14:08)
[2024-12-03] MEDS: Lidocaine 2% Viscous Solution 10 ML, Aluminum & Magnesium Hydroxide 30 ML SSW SCH (22:49)
[2024-12-04] MEDS: Dicyclomine 10 MG CAP PO PRN (00:27)
[2024-12-04 06:20] LABS: Hematocrit 33.8 % (36.0-47.0); Hemoglobin 11.1 g/dL (12.0-16.0); Mean Corpuscular Hemoglobin 28.8 pg (27.0-31.0); Mean Corpuscular Volume 87.6 fL (78.0-98.0); Platelet Count 289 10x3/uL (130-400); Red Blood Cell (RBC) Count 3.86 mill/uL (4.20-5.40); White Blood Cell (WBC) Count 32.17 10x3/uL (4.8-10.8)
[2024-12-04 06:28] LABS: Anion Gap 14 mmol/L (10-20); BUN (Urea Nitrogen) 32 mg/dL (9.8-20.1); Calc. Creatinine Clearance 78 mL/min (70-130); Calcium 8.6 mg/dL (7.8-10.44); Carbon Dioxide 23 mmol/L (23-31); Chloride 104 mmol/L (98-107); Glucose 152 mg/dL (83-110); Magnesium 1.9 mg/dL (1.6-2.6); Potassium 3.8 mmol/L (3.5-5.1); Sodium 137 mmol/L (136-145)
[2024-12-04 06:52] LABS: Platelet Adequacy Comment Platelets Normal; RBC Morphology Within Normal Limits
[2024-12-04] MEDS: Pantoprazole 40 MG DR.TAB PO SCH (08:44)
[2024-12-04] MEDS: LevoFLOXacin 750 mg/D5W 750 MG in Premix 1 BAG IVPB SCH (10:10)
[2024-12-04 16:04] LABS: Platelet Adequacy Comment Platelets Normal; Polychromasia SLIGHT = 2-3 cells HPF (0-2); Smudge Cells 5.0 %; Toxic Granulation SLIGHT
[2024-12-04 16:11] LABS: Hematocrit 34.1 % (36.0-47.0); Hemoglobin 11.1 g/dL (12.0-16.0); Mean Corpuscular Hemoglobin 28.6 pg (27.0-31.0); Mean Corpuscular Volume 87.9 fL (78.0-98.0); Platelet Count 284 10x3/uL (130-400); Red Blood Cell (RBC) Count 3.88 mill/uL (4.20-5.40); White Blood Cell (WBC) Count 39.16 10x3/uL (4.8-10.8)
[2024-12-04] MEDS: Enoxaparin 60 MG (0.6 mL) SYRINGE SC SCH (19:55)
[2024-12-04] MEDS: Pantoprazole 40 MG VIAL IVP SCH (21:18)
[2024-12-04] MEDS ORDERED: HYDROcodone/Acetaminophen 10/325 mg Tablet PO PRN (23:02)
[2024-12-04] MEDS ORDERED: HYDROcodone/Acetaminophen 5/325 mg Tablet PO PRN (23:02)
[2024-12-04 23:19] LABS: Hematocrit 31.2 % (36.0-47.0); Hemoglobin 10.3 g/dL (12.0-16.0)
[2024-12-05 01:46] LABS: Hematocrit 30.4 % (36.0-47.0); Hemoglobin 10.2 g/dL (12.0-16.0)
[2024-12-05 06:36] LABS: Hematocrit 33.8 % (36.0-47.0); Hemoglobin 10.1 g/dL (12.0-16.0); Mean Corpuscular Hemoglobin 28.1 pg (27.0-31.0); Mean Corpuscular Volume 93.9 fL (78.0-98.0); Platelet Count 223 10x3/uL (130-400); Red Blood Cell (RBC) Count 3.60 mill/uL (4.20-5.40); White Blood Cell (WBC) Count 32.76 10x3/uL (4.8-10.8)
[2024-12-05 06:44] LABS: Anion Gap 12 mmol/L (10-20); BUN (Urea Nitrogen) 47 mg/dL (9.8-20.1); Calc. Creatinine Clearance 66 mL/min (70-130); Calcium 9.1 mg/dL (7.8-10.44); Carbon Dioxide 23 mmol/L (23-31); Chloride 104 mmol/L (98-107); Glucose 121 mg/dL (83-110); Potassium 4.5 mmol/L (3.5-5.1); Sodium 134 mmol/L (136-145)
[2024-12-05] MEDS: Pantoprazole 40 MG VIAL IVP SCH (08:30)
[2024-12-05 08:53] LABS: Burr Cells MODERATE= 6-15 cells HPF (0-1); Platelet Adequacy Comment Platelets Normal; Poikilocytosis SLIGHT = 6-15 cells HPF (0-5); Polychromasia SLIGHT = 2-3 cells HPF (0-2); Smudge Cells 8.7 %
[2024-12-05] MEDS ORDERED: PROPOFOL 20 ML ONE (15:49)
[2024-12-05] MEDS ORDERED: fentaNYL PF 100 MCG/2 ML SYRINGE ONE (15:49)
[2024-12-05] MEDS ORDERED: Lidocaine 1% PF 5 ML VIAL ONE (15:49)
[2024-12-05] MEDS ORDERED: Rocuronium Bromide 10 MG/ML (10ML VIAL) ONE (15:49)
[2024-12-05] MEDS ORDERED: Bupivacaine 0.25% HCL 30 ML VIAL ONE (15:50)
[2024-12-05] MEDS ORDERED: Etomidate 40 MG (20 mL) VIAL ONE (16:13)
[2024-12-05] MEDS ORDERED: Ketamine In 0.9 % NaCl 50 MG/5 ML SYRINGE ONE (16:15)
[2024-12-05] MEDS ORDERED: SUCCINYLCHOLINE/SOD CL,ISO/PF 200 MG/10 ML SYRINGE FS ONE (16:39)
[2024-12-05] MEDS ORDERED: PHENYLEPHRINE-NS 100 MCG/ML 10 ML SYRINGE ONE (16:44)
[2024-12-05] MEDS ORDERED: Calcium Chloride 1 GM/10 ML Abboject SYRINGE ONE (16:44)
[2024-12-05] MEDS ORDERED: Fentanyl BOLUS 100 ML IVPB PRN (19:15)
[2024-12-05] MEDS ORDERED: Propofol BOLUS 1,000 MG/100 ML VIAL IV PRN (19:15)
[2024-12-05] MEDS ORDERED: DISCONTINUE PREVIOUS NARCOTIC PAIN MEDICATIONS AND BENZODIAZEPINES FS SCH (19:15)
[2024-12-05 19:30] LABS: Actual Bicarbonate (HCO3a) 20.1 mEq/L (22-28); Base Excess (BEa) -3.0 mEq/L (-2.0 to +3.0); CO2 Tension 29.3 mmHg (35.0-45.0); Calcium, Ionized (arterial) 1.23 mmol/L (1.12-1.30); Hematocrit-ABG 28 % (36.0-47.0); Hemoglobin (Hb) 9.4 g/dL (12.0-16.0); O2 Tension (PaO2), arterial 74.7 mmHg (> 70.0); Potassium - ABG Lab 3.72 mmol/L (3.70-5.30); pH, Arterial 7.455 (7.35-7.45)
[2024-12-05 19:31] LABS: Puncture Site Arterial Line
[2024-12-05 19:32] LABS: ALV-art Gradient 245.175 mmHg (0-20)
[2024-12-05 20:57] LABS: #Basophils 0.03 10x3/uL (0.0-0.2); #Eosinophils Less than 0.03 10x3/uL (0.0-0.7); #Monocytes 1.37 10x3/uL (0.11-0.59); #Neutrophils 20.88 10x3/uL (1.40-6.50); %Basophils 0.1 % (0.0-1.0); %Eosinophils 0.0 % (0.0-10.0); %Lymphocytes 4.8 % (21.0-51.0); %Monocytes 5.8 % (0.0-10.0); %Neutrophils 88.3 % (42.0-75.0); Hematocrit 25.0 % (36.0-47.0); Hemoglobin 8.0 g/dL (12.0-16.0); Mean Corpuscular Hemoglobin 28.5 pg (27.0-31.0); Mean Corpuscular Volume 89.0 fL (78.0-98.0); Platelet Count 219 10x3/uL (130-400); Red Blood Cell (RBC) Count 2.81 mill/uL (4.20-5.40); White Blood Cell (WBC) Count 23.65 10x3/uL (4.8-10.8)
[2024-12-05 21:06] LABS: Anion Gap 7 mmol/L (10-20); BUN (Urea Nitrogen) 30 mg/dL (9.8-20.1); Calc. Creatinine Clearance 95 mL/min (70-130); Calcium 8.5 mg/dL (7.8-10.44); Carbon Dioxide 21 mmol/L (23-31); Chloride 114 mmol/L (98-107); Glucose 118 mg/dL (83-110); Magnesium 1.8 mg/dL (1.6-2.6); Potassium 3.8 mmol/L (3.5-5.1); Sodium 138 mmol/L (136-145)
[2024-12-05] MEDS: Mupirocin 1 GM TUBE NASAL DECOLONIZATION TP SCH (21:54)
[2024-12-05] MEDS: Albumin 5% 25 GM (500 mL) BOT IVPB SCH (22:15)
[2024-12-06] MEDS: Potassium Phosphate 22 MMOL in Sodium Chloride 0.9% 250 ML 250 ML IVPB SCH (01:03)
[2024-12-06 04:40] LABS: #Basophils Less than 0.03 10x3/uL (0.0-0.2); #Eosinophils Less than 0.03 10x3/uL (0.0-0.7); #Monocytes 1.26 10x3/uL (0.11-0.59); #Neutrophils 16.86 10x3/uL (1.40-6.50); %Basophils 0.1 % (0.0-1.0); %Eosinophils 0.0 % (0.0-10.0); %Lymphocytes 6.3 % (21.0-51.0); %Monocytes 6.5 % (0.0-10.0); %Neutrophils 86.4 % (42.0-75.0); Hematocrit 21.7 % (36.0-47.0); Hemoglobin 6.9 g/dL (12.0-16.0); Mean Corpuscular Hemoglobin 28.3 pg (27.0-31.0); Mean Corpuscular Volume 88.9 fL (78.0-98.0); Platelet Count 204 10x3/uL (130-400); Red Blood Cell (RBC) Count 2.44 mill/uL (4.20-5.40); White Blood Cell (WBC) Count 19.49 10x3/uL (4.8-10.8)
[2024-12-06 05:07] LABS: Anion Gap 10 mmol/L (10-20); BUN (Urea Nitrogen) 32 mg/dL (9.8-20.1); Calc. Creatinine Clearance 103 mL/min (70-130); Calcium 8.1 mg/dL (7.8-10.44); Carbon Dioxide 21 mmol/L (23-31); Chloride 113 mmol/L (98-107); Glucose 106 mg/dL (83-110); Magnesium 1.9 mg/dL (1.6-2.6); Potassium 4.2 mmol/L (3.5-5.1); Sodium 140 mmol/L (136-145)
[2024-12-06 08:35] LABS: #Basophils Less than 0.03 10x3/uL (0.0-0.2); #Eosinophils Less than 0.03 10x3/uL (0.0-0.7); #Monocytes 1.38 10x3/uL (0.11-0.59); #Neutrophils 17.75 10x3/uL (1.40-6.50); %Basophils 0.0 % (0.0-1.0); %Eosinophils 0.0 % (0.0-10.0); %Lymphocytes 6.9 % (21.0-51.0); %Monocytes 6.7 % (0.0-10.0); %Neutrophils 85.7 % (42.0-75.0); Hematocrit 21.0 % (36.0-47.0); Hemoglobin 6.7 g/dL (12.0-16.0); Mean Corpuscular Hemoglobin 28.6 pg (27.0-31.0); Mean Corpuscular Volume 89.7 fL (78.0-98.0); Platelet Count 216 10x3/uL (130-400); Red Blood Cell (RBC) Count 2.34 mill/uL (4.20-5.40); White Blood Cell (WBC) Count 20.72 10x3/uL (4.8-10.8)
[2024-12-06] MEDS: Mupirocin 1 GM TUBE NASAL DECOLOIZATION TP SCH (10:47)
[2024-12-06 14:54] LABS: #Basophils Less than 0.03 10x3/uL (0.0-0.2); #Eosinophils Less than 0.03 10x3/uL (0.0-0.7); #Monocytes 1.33 10x3/uL (0.11-0.59); #Neutrophils 15.69 10x3/uL (1.40-6.50); %Basophils 0.1 % (0.0-1.0); %Eosinophils 0.0 % (0.0-10.0); %Lymphocytes 7.4 % (21.0-51.0); %Monocytes 7.2 % (0.0-10.0); %Neutrophils 84.8 % (42.0-75.0); Hematocrit 24.7 % (36.0-47.0); Hemoglobin 7.9 g/dL (12.0-16.0); Mean Corpuscular Hemoglobin 28.3 pg (27.0-31.0); Mean Corpuscular Volume 88.5 fL (78.0-98.0); Platelet Count 198 10x3/uL (130-400); Red Blood Cell (RBC) Count 2.79 mill/uL (4.20-5.40); White Blood Cell (WBC) Count 18.48 10x3/uL (4.8-10.8)
[2024-12-06 15:10] LABS: Anion Gap 10 mmol/L (10-20); BUN (Urea Nitrogen) 22 mg/dL (9.8-20.1); Calc. Creatinine Clearance 103 mL/min (70-130); Calcium 7.9 mg/dL (7.8-10.44); Carbon Dioxide 19 mmol/L (23-31); Chloride 116 mmol/L (98-107); Glucose 80 mg/dL (83-110); Potassium 3.7 mmol/L (3.5-5.1); Sodium 141 mmol/L (136-145)
[2024-12-07 05:22] LABS: #Basophils Less than 0.03 10x3/uL (0.0-0.2); #Eosinophils Less than 0.03 10x3/uL (0.0-0.7); #Monocytes 1.14 10x3/uL (0.11-0.59); #Neutrophils 13.75 10x3/uL (1.40-6.50); %Basophils 0.1 % (0.0-1.0); %Eosinophils 0.0 % (0.0-10.0); %Lymphocytes 9.9 % (21.0-51.0); %Monocytes 6.8 % (0.0-10.0); %Neutrophils 82.5 % (42.0-75.0); Hematocrit 25.4 % (36.0-47.0); Hemoglobin 8.1 g/dL (12.0-16.0); Mean Corpuscular Hemoglobin 28.6 pg (27.0-31.0); Mean Corpuscular Volume 89.8 fL (78.0-98.0); Platelet Count 240 10x3/uL (130-400); Red Blood Cell (RBC) Count 2.83 mill/uL (4.20-5.40); White Blood Cell (WBC) Count 16.68 10x3/uL (4.8-10.8)
[2024-12-07 05:53] LABS: Anion Gap 9 mmol/L (10-20); BUN (Urea Nitrogen) 20 mg/dL (9.8-20.1); Calc. Creatinine Clearance 110 mL/min (70-130); Calcium 7.4 mg/dL (7.8-10.44); Carbon Dioxide 18 mmol/L (23-31); Chloride 118 mmol/L (98-107); Glucose 81 mg/dL (83-110); Magnesium 1.8 mg/dL (1.6-2.6); Potassium 3.4 mmol/L (3.5-5.1); Sodium 142 mmol/L (136-145)
[2024-12-08 06:41] LABS: #Basophils 0.03 10x3/uL (0.0-0.2); #Eosinophils Less than 0.03 10x3/uL (0.0-0.7); #Monocytes 1.14 10x3/uL (0.11-0.59); #Neutrophils 11.64 10x3/uL (1.40-6.50); %Basophils 0.2 % (0.0-1.0); %Eosinophils 0.0 % (0.0-10.0); %Lymphocytes 10.8 % (21.0-51.0); %Monocytes 7.9 % (0.0-10.0); %Neutrophils 80.2 % (42.0-75.0); Hematocrit 33.3 % (36.0-47.0); Hemoglobin 10.8 g/dL (12.0-16.0); Mean Corpuscular Hemoglobin 28.8 pg (27.0-31.0); Mean Corpuscular Volume 88.8 fL (78.0-98.0); Platelet Count 274 10x3/uL (130-400); Red Blood Cell (RBC) Count 3.75 mill/uL (4.20-5.40); White Blood Cell (WBC) Count 14.51 10x3/uL (4.8-10.8)
[2024-12-08 06:54] LABS: Anion Gap 15 mmol/L (10-20); BUN (Urea Nitrogen) 17 mg/dL (9.8-20.1); Calc. Creatinine Clearance 121 mL/min (70-130); Calcium 7.7 mg/dL (7.8-10.44); Carbon Dioxide 18 mmol/L (23-31); Chloride 117 mmol/L (98-107); Glucose 83 mg/dL (83-110); Potassium 3.4 mmol/L (3.5-5.1); Sodium 147 mmol/L (136-145)
[2024-12-08] MEDS: Electrolyte Replacement Protocol 1 EACH FS ONE (08:05)
[2024-12-08 08:12] LABS: Magnesium 2.0 mg/dL (1.6-2.6)
[2024-12-08] MEDS: Potassium Chloride 20 MEQ in Premix 1 BAG IVPB SCH (08:33)
[2024-12-08] MEDS: Potassium Phosphate 30 MMOL in Sodium Chloride 0.9% 250 ML 250 ML IVPB SCH (14:31)
[2024-12-08] MEDS: Famotidine 20 MG TAB PO SCH (15:40)
[2024-12-08] MEDS: diphenhydrAMINE 25 MG CAP PO PRN (15:40)
[2024-12-09 06:01] LABS: #Basophils 0.06 10x3/uL (0.0-0.2); #Eosinophils Less than 0.03 10x3/uL (0.0-0.7); #Monocytes 1.70 10x3/uL (0.11-0.59); #Neutrophils 12.91 10x3/uL (1.40-6.50); %Basophils 0.4 % (0.0-1.0); %Eosinophils 0.0 % (0.0-10.0); %Lymphocytes 12.1 % (21.0-51.0); %Monocytes 10.0 % (0.0-10.0); %Neutrophils 75.9 % (42.0-75.0); Hematocrit 32.3 % (36.0-47.0); Hemoglobin 10.2 g/dL (12.0-16.0); Mean Corpuscular Hemoglobin 28.2 pg (27.0-31.0); Mean Corpuscular Volume 89.2 fL (78.0-98.0); Platelet Count 355 10x3/uL (130-400); Red Blood Cell (RBC) Count 3.62 mill/uL (4.20-5.40); White Blood Cell (WBC) Count 17.00 10x3/uL (4.8-10.8)
[2024-12-09 06:15] LABS: Anion Gap 11 mmol/L (10-20); BUN (Urea Nitrogen) 14 mg/dL (9.8-20.1); Calc. Creatinine Clearance 117 mL/min (70-130); Calcium 7.7 mg/dL (7.8-10.44); Carbon Dioxide 24 mmol/L (23-31); Chloride 114 mmol/L (98-107); Glucose 95 mg/dL (83-110); Magnesium 1.9 mg/dL (1.6-2.6); Potassium 3.1 mmol/L (3.5-5.1); Sodium 146 mmol/L (136-145)
[2024-12-09] MEDS ORDERED: Potassium Bicarbonate/Cit Ac 20 MEQ TAB PO SCH ×2 (08:30→12:00)
[2024-12-09] MEDS: Magnesium 2 GM/50 ML(in water) 2 GM in Premix 1 BAG IVPB SCH (08:48)
[2024-12-09] MEDS: Potassium Phosphate 30 MMOL in Sodium Chloride 0.9% 250 ML 250 ML IVPB SCH (10:28)
[2024-12-09 11:23] VITALS: BMI 27.1
[2024-12-09 15:50] LABS: Potassium 3.3 mmol/L (3.5-5.1)
[2024-12-09] MEDS ORDERED: Electrolyte Replacement Protocol 1 EACH FS PRN (15:54)
[2024-12-09] MEDS: Potassium Chloride 20 MEQ in Premix 1 BAG IVPB SCH (16:20)
[2024-12-10] MEDS: diphenhydrAMINE 50 MG/ML VIAL IVP PRN (00:38)
[2024-12-10 07:11] LABS: #Basophils 0.04 10x3/uL (0.0-0.2); #Eosinophils Less than 0.03 10x3/uL (0.0-0.7); #Monocytes 1.80 10x3/uL (0.11-0.59); #Neutrophils 12.67 10x3/uL (1.40-6.50); %Basophils 0.2 % (0.0-1.0); %Eosinophils 0.0 % (0.0-10.0); %Lymphocytes 10.5 % (21.0-51.0); %Monocytes 10.9 % (0.0-10.0); %Neutrophils 76.8 % (42.0-75.0); Hematocrit 30.0 % (36.0-47.0); Hemoglobin 9.8 g/dL (12.0-16.0); Mean Corpuscular Hemoglobin 29.0 pg (27.0-31.0); Mean Corpuscular Volume 88.8 fL (78.0-98.0); Platelet Count 410 10x3/uL (130-400); Red Blood Cell (RBC) Count 3.38 mill/uL (4.20-5.40); White Blood Cell (WBC) Count 16.52 10x3/uL (4.8-10.8)
[2024-12-10 07:27] LABS: Anion Gap 10 mmol/L (10-20); BUN (Urea Nitrogen) 13 mg/dL (9.8-20.1); Calc. Creatinine Clearance 139 mL/min (70-130); Calcium 7.2 mg/dL (7.8-10.44); Carbon Dioxide 25 mmol/L (23-31); Chloride 112 mmol/L (98-107); Glucose 129 mg/dL (83-110); Magnesium 2.0 mg/dL (1.6-2.6); Potassium 3.0 mmol/L (3.5-5.1); Sodium 144 mmol/L (136-145)
[2024-12-10] MEDS: Potassium Phosphate 30 MMOL in Sodium Chloride 0.9% 250 ML 250 ML IVPB SCH (09:58)
[2024-12-10] MEDS: Magnesium 2 GM/50 ML(in water) 2 GM in Premix 1 BAG IVPB SCH (09:59)
[2024-12-10] MEDS: D5W-AA 4.25% with LYTES 1,000 ML IV SCH (11:48)
[2024-12-10] MEDS: Multivits W-Minerals Liquid 15 ML UDCUP PER TUBE SCH (11:48)
[2024-12-11 01:28] LABS: Potassium 3.5 mmol/L (3.5-5.1)
[2024-12-11 07:48] LABS: Anion Gap 8 mmol/L (10-20); BUN (Urea Nitrogen) 18 mg/dL (9.8-20.1); Calc. Creatinine Clearance 143 mL/min (70-130); Calcium 7.1 mg/dL (7.8-10.44); Carbon Dioxide 27 mmol/L (23-31); Chloride 108 mmol/L (98-107); Glucose 120 mg/dL (83-110); Magnesium 2.2 mg/dL (1.6-2.6); Potassium 3.2 mmol/L (3.5-5.1); Sodium 140 mmol/L (136-145)
[2024-12-11 07:55] LABS: #Basophils 0.04 10x3/uL (0.0-0.2); #Eosinophils Less than 0.03 10x3/uL (0.0-0.7); #Monocytes 1.21 10x3/uL (0.11-0.59); #Neutrophils 8.77 10x3/uL (1.40-6.50); %Basophils 0.3 % (0.0-1.0); %Eosinophils 0.0 % (0.0-10.0); %Lymphocytes 13.2 % (21.0-51.0); %Monocytes 10.3 % (0.0-10.0); %Neutrophils 74.9 % (42.0-75.0); Hematocrit 29.8 % (36.0-47.0); Hemoglobin 9.4 g/dL (12.0-16.0); Mean Corpuscular Hemoglobin 28.8 pg (27.0-31.0); Mean Corpuscular Volume 91.4 fL (78.0-98.0); Platelet Count 413 10x3/uL (130-400); Red Blood Cell (RBC) Count 3.26 mill/uL (4.20-5.40); White Blood Cell (WBC) Count 11.71 10x3/uL (4.8-10.8)
[2024-12-11] MEDS ORDERED: Multivits W-Minerals Liquid 15 ML UDCUP PER TUBE SCH (09:00)
[2024-12-11] MEDS: Potassium Chloride 20 MEQ in Premix 1 BAG IVPB SCH (10:30)
[2024-12-11] MEDS: Multivit, Therapeutic 1 TAB PO SCH (12:42)
[2024-12-11] MEDS: Potassium Phosphate 30 MMOL in Sodium Chloride 0.9% 250 ML 250 ML IVPB SCH (13:54)
[2024-12-11] MEDS: Heparin 5,000 UNITS/ML VIAL SC SCH (16:25)
[2024-12-11] MEDS: Thiamine 100 MG TAB PO SCH (21:32)
[2024-12-12 05:33] LABS: #Basophils Less than 0.03 10x3/uL (0.0-0.2); #Eosinophils Less than 0.03 10x3/uL (0.0-0.7); #Monocytes 1.03 10x3/uL (0.11-0.59); #Neutrophils 11.86 10x3/uL (1.40-6.50); %Basophils 0.1 % (0.0-1.0); %Eosinophils 0.0 % (0.0-10.0); %Lymphocytes 11.8 % (21.0-51.0); %Monocytes 6.9 % (0.0-10.0); %Neutrophils 80.1 % (42.0-75.0); Hematocrit 29.1 % (36.0-47.0); Hemoglobin 9.2 g/dL (12.0-16.0); Mean Corpuscular Hemoglobin 28.8 pg (27.0-31.0); Mean Corpuscular Volume 91.2 fL (78.0-98.0); Platelet Count 420 10x3/uL (130-400); Red Blood Cell (RBC) Count 3.19 mill/uL (4.20-5.40); White Blood Cell (WBC) Count 14.83 10x3/uL (4.8-10.8)
[2024-12-12 05:50] LABS: Anion Gap 12 mmol/L (10-20); BUN (Urea Nitrogen) 19 mg/dL (9.8-20.1); Calc. Creatinine Clearance 143 mL/min (70-130); Calcium 7.2 mg/dL (7.8-10.44); Carbon Dioxide 23 mmol/L (23-31); Chloride 104 mmol/L (98-107); Glucose 110 mg/dL (83-110); Magnesium 2.0 mg/dL (1.6-2.6); Potassium 3.5 mmol/L (3.5-5.1); Sodium 135 mmol/L (136-145)
[2024-12-12] MEDS: Magnesium 2 GM/50 ML(in water) 2 GM in Premix 1 BAG IVPB SCH (08:40)
[2024-12-12] MEDS: Multivit, Therapeutic 1 TAB PO SCH (10:41)
[2024-12-12] MEDS: Potassium Chloride 20 MEQ in Premix 1 BAG IVPB SCH (11:07)
[2024-12-13 05:36] LABS: #Basophils Less than 0.03 10x3/uL (0.0-0.2); #Eosinophils Less than 0.03 10x3/uL (0.0-0.7); #Monocytes 0.70 10x3/uL (0.11-0.59); #Neutrophils 10.43 10x3/uL (1.40-6.50); %Basophils 0.2 % (0.0-1.0); %Eosinophils 0.0 % (0.0-10.0); %Lymphocytes 14.5 % (21.0-51.0); %Monocytes 5.3 % (0.0-10.0); %Neutrophils 79.2 % (42.0-75.0); Hematocrit 27.4 % (36.0-47.0); Hemoglobin 8.8 g/dL (12.0-16.0); Mean Corpuscular Hemoglobin 28.5 pg (27.0-31.0); Mean Corpuscular Volume 88.7 fL (78.0-98.0); Platelet Count 443 10x3/uL (130-400); Red Blood Cell (RBC) Count 3.09 mill/uL (4.20-5.40); White Blood Cell (WBC) Count 13.16 10x3/uL (4.8-10.8)
[2024-12-13 05:49] LABS: Anion Gap 8 mmol/L (10-20); BUN (Urea Nitrogen) 14 mg/dL (9.8-20.1); Calc. Creatinine Clearance 139 mL/min (70-130); Calcium 7.1 mg/dL (7.8-10.44); Carbon Dioxide 24 mmol/L (23-31); Chloride 104 mmol/L (98-107); Glucose 102 mg/dL (83-110); Magnesium 2.0 mg/dL (1.6-2.6); Potassium 3.0 mmol/L (3.5-5.1); Sodium 133 mmol/L (136-145)
[2024-12-13] MEDS: Magnesium 2 GM/50 ML(in water) 2 GM in Premix 1 BAG IVPB SCH (10:32)
[2024-12-13] MEDS: LevoFLOXacin 750 mg/D5W 750 MG in Premix 1 BAG IVPB SCH (14:43)
[2024-12-14 06:10] LABS: #Basophils Less than 0.03 10x3/uL (0.0-0.2); #Eosinophils Less than 0.03 10x3/uL (0.0-0.7); #Monocytes 0.80 10x3/uL (0.11-0.59); #Neutrophils 12.52 10x3/uL (1.40-6.50); %Basophils 0.1 % (0.0-1.0); %Eosinophils 0.0 % (0.0-10.0); %Lymphocytes 11.3 % (21.0-51.0); %Monocytes 5.3 % (0.0-10.0); %Neutrophils 82.4 % (42.0-75.0); Hematocrit 27.4 % (36.0-47.0); Hemoglobin 8.6 g/dL (12.0-16.0); Mean Corpuscular Hemoglobin 28.6 pg (27.0-31.0); Mean Corpuscular Volume 91.0 fL (78.0-98.0); Platelet Count 461 10x3/uL (130-400); Red Blood Cell (RBC) Count 3.01 mill/uL (4.20-5.40); White Blood Cell (WBC) Count 15.18 10x3/uL (4.8-10.8)
[2024-12-14 06:29] LABS: ALT (SGPT) 8 U/L (Less than 34); AST (SGOT) 13 U/L (11-34); Albumin 1.9 g/dL (3.1-4.5); Alkaline Phosphatase 34 U/L (40-110); Anion Gap 9 mmol/L (10-20); BUN (Urea Nitrogen) 13 mg/dL (9.8-20.1); Bilirubin, Total 0.1 mg/dL (0.3-1.2); Calc. Creatinine Clearance 114 mL/min (70-130); Calcium 7.1 mg/dL (7.8-10.44); Carbon Dioxide 25 mmol/L (23-31); Chloride 104 mmol/L (98-107); Globulin 2.0 g/dL (2.4-3.5); Glucose 136 mg/dL (83-110); Iron 24 ug/dL (50-170); Iron Binding Capacity, Total 113 mcg/dL (265-497); Magnesium 1.9 mg/dL (1.6-2.6); Potassium 3.2 mmol/L (3.5-5.1); Sodium 135 mmol/L (136-145)
[2024-12-14 06:30] LABS: Iron 24 ug/dL (50-170); Iron Binding Capacity, Total 110 mcg/dL (265-497)
[2024-12-14] MEDS: Magnesium 2 GM/50 ML(in water) 2 GM in Premix 1 BAG IVPB SCH (08:11)
[2024-12-14] MEDS ORDERED: Electrolyte Replacement Protocol 1 EACH FS SCH (09:00)
[2024-12-15 06:45] LABS: Hematocrit 27.4 % (36.0-47.0); Hemoglobin 8.8 g/dL (12.0-16.0); Mean Corpuscular Hemoglobin 28.8 pg (27.0-31.0); Mean Corpuscular Volume 89.5 fL (78.0-98.0); Platelet Count 500 10x3/uL (130-400); Red Blood Cell (RBC) Count 3.06 mill/uL (4.20-5.40); White Blood Cell (WBC) Count 17.04 10x3/uL (4.8-10.8)
[2024-12-15 07:01] LABS: Anion Gap 8 mmol/L (10-20); BUN (Urea Nitrogen) 11 mg/dL (9.8-20.1); Calc. Creatinine Clearance 136 mL/min (70-130); Calcium 7.4 mg/dL (7.8-10.44); Carbon Dioxide 26 mmol/L (23-31); Chloride 108 mmol/L (98-107); Glucose 112 mg/dL (83-110); Magnesium 1.9 mg/dL (1.6-2.6); Potassium 3.5 mmol/L (3.5-5.1); Sodium 138 mmol/L (136-145)
[2024-12-15] MEDS: Potassium Bicarbonate/Cit Ac 20 MEQ TAB PO SCH (08:48)
[2024-12-15] MEDS: Magnesium 2 GM/50 ML(in water) 2 GM in Premix 1 BAG IVPB SCH (08:49)
[2024-12-15] MEDS: Floranex 1 GM Packet PO SCH (09:12)
[2024-12-15] MEDS: Metamucil PACK PO SCH (20:41)
[2024-12-16 06:08] LABS: #Basophils Less than 0.03 10x3/uL (0.0-0.2); #Eosinophils Less than 0.03 10x3/uL (0.0-0.7); #Monocytes 1.00 10x3/uL (0.11-0.59); #Neutrophils 11.07 10x3/uL (1.40-6.50); %Basophils 0.1 % (0.0-1.0); %Eosinophils 0.0 % (0.0-10.0); %Lymphocytes 11.1 % (21.0-51.0); %Monocytes 7.3 % (0.0-10.0); %Neutrophils 81.0 % (42.0-75.0); Hematocrit 26.0 % (36.0-47.0); Hemoglobin 8.2 g/dL (12.0-16.0); Mean Corpuscular Hemoglobin 28.5 pg (27.0-31.0); Mean Corpuscular Volume 90.3 fL (78.0-98.0); Platelet Count 465 10x3/uL (130-400); Red Blood Cell (RBC) Count 2.88 mill/uL (4.20-5.40); White Blood Cell (WBC) Count 13.67 10x3/uL (4.8-10.8)
[2024-12-16 06:42] LABS: Anion Gap 10 mmol/L (10-20); BUN (Urea Nitrogen) 10 mg/dL (9.8-20.1); Calc. Creatinine Clearance 132 mL/min (70-130); Calcium 7.6 mg/dL (7.8-10.44); Carbon Dioxide 25 mmol/L (23-31); Chloride 107 mmol/L (98-107); Glucose 86 mg/dL (83-110); Magnesium 1.9 mg/dL (1.6-2.6); Potassium 3.5 mmol/L (3.5-5.1); Sodium 138 mmol/L (136-145)
[2024-12-16] MEDS: Acetaminophen 325 MG TAB PO PRN (12:09)
[2024-12-16] MEDS: Magnesium 2 GM/50 ML(in water) 2 GM in Premix 1 BAG IVPB SCH (12:09)
[2024-12-16] MEDS: Metamucil PACK PO SCH (16:25)
[2024-12-17 05:54] LABS: #Basophils Less than 0.03 10x3/uL (0.0-0.2); #Eosinophils Less than 0.03 10x3/uL (0.0-0.7); #Monocytes 1.09 10x3/uL (0.11-0.59); #Neutrophils 11.29 10x3/uL (1.40-6.50); %Basophils 0.1 % (0.0-1.0); %Eosinophils 0.0 % (0.0-10.0); %Lymphocytes 7.4 % (21.0-51.0); %Monocytes 8.1 % (0.0-10.0); %Neutrophils 84.0 % (42.0-75.0); Hematocrit 27.4 % (36.0-47.0); Hemoglobin 8.8 g/dL (12.0-16.0); Mean Corpuscular Hemoglobin 28.9 pg (27.0-31.0); Mean Corpuscular Volume 89.8 fL (78.0-98.0); Platelet Count 489 10x3/uL (130-400); Red Blood Cell (RBC) Count 3.05 mill/uL (4.20-5.40); White Blood Cell (WBC) Count 13.44 10x3/uL (4.8-10.8)
[2024-12-17 06:07] LABS: Anion Gap 10 mmol/L (10-20); BUN (Urea Nitrogen) 12 mg/dL (9.8-20.1); Calc. Creatinine Clearance 125 mL/min (70-130); Calcium 7.9 mg/dL (7.8-10.44); Carbon Dioxide 26 mmol/L (23-31); Chloride 106 mmol/L (98-107); Glucose 100 mg/dL (83-110); Magnesium 1.8 mg/dL (1.6-2.6); Potassium 3.2 mmol/L (3.5-5.1); Sodium 139 mmol/L (136-145)
[2024-12-17] MEDS: Magnesium 2 GM/50 ML(in water) 2 GM in Premix 1 BAG IVPB SCH (09:08)
[2024-12-18 05:27] LABS: Hematocrit 25.8 % (36.0-47.0); Hemoglobin 8.1 g/dL (12.0-16.0); Mean Corpuscular Hemoglobin 28.5 pg (27.0-31.0); Mean Corpuscular Volume 90.8 fL (78.0-98.0); Platelet Count 460 10x3/uL (130-400); Red Blood Cell (RBC) Count 2.84 mill/uL (4.20-5.40); White Blood Cell (WBC) Count 10.63 10x3/uL (4.8-10.8)
[2024-12-18 06:00] LABS: Anion Gap 9 mmol/L (10-20); BUN (Urea Nitrogen) 10 mg/dL (9.8-20.1); Calc. Creatinine Clearance 132 mL/min (70-130); Calcium 7.8 mg/dL (7.8-10.44); Carbon Dioxide 25 mmol/L (23-31); Chloride 103 mmol/L (98-107); Glucose 92 mg/dL (83-110); Potassium 3.2 mmol/L (3.5-5.1); Sodium 134 mmol/L (136-145)
[2024-12-18] MEDS: Potassium Bicarbonate/Cit Ac 20 MEQ TAB PO SCH (09:22)
[2024-12-18 12:34] VITALS: TEMP 97.9
[2024-12-18 15:42] VITALS: BP 120/62
== END 2024-12-18 19:07 | DRG 853 ==
LOC: ERS 01:05 → T4-A 05:56 → UNDOADMIN 05:58 → OBSVTOIN 12-04 16:38 → CCU 12-05 18:56 → SURG A 12-07 17:46
PROVIDERS: ADMIT Student in an Organized Health Care Education/Training Program; ATTEND Internal Medicine
PROC: 0DB80ZZ Excision of Small Intestine, Open Approach (ICD-10-PCS; principal; 2024-12-05)
PROC: 4A03XR1 Measurement of Arterial Saturation, Peripheral, External Approach (ICD-10-PCS; 2024-12-05)
PROC: 30233N1 Transfusion of Nonautologous Red Blood Cells into Peripheral Vein, Percutaneous Approach (ICD-10-PCS; 2024-12-06)
DX: A41.9 Sepsis, unspecified organism (principal); J95.821 Acute postprocedural respiratory failure; K65.9 Peritonitis, unspecified; N13.30 Unspecified hydronephrosis; K56.7 Ileus, unspecified; D62 Acute posthemorrhagic anemia; K55.9 Vascular disorder of intestine, unspecified; E87.1 Hypo-osmolality and hyponatremia; K52.9 Noninfective gastroenteritis and colitis, unspecified; Z91.012 Allergy to eggs; Z91.011 Allergy to milk products; K21.9 Gastro-esophageal reflux disease without esophagitis; Z88.0 Allergy status to penicillin; Z91.018 Allergy to other foods; E03.9 Hypothyroidism, unspecified; Z88.8 Allergy status to other drugs, medicaments and biological substances; Z98.890 Other specified postprocedural states; H40.9 Unspecified glaucoma; D72.829 Elevated white blood cell count, unspecified; Z98.49 Cataract extraction status, unspecified eye; I48.91 Unspecified atrial fibrillation; K52.832 Lymphocytic colitis; K20.90 Esophagitis, unspecified without bleeding; L89.899 Pressure ulcer of other site, unspecified stage; E87.6 Hypokalemia; E83.42 Hypomagnesemia; E83.39 Other disorders of phosphorus metabolism; D64.9 Anemia, unspecified
CPT/HCPCS: 36415; 36416; 36430; 51701; 71045; 74018; 74177; 80048; 80053; 80307; 81001; 82140; 82570; 82728; 82805; 83036; 83540; 83550; 83605; 83690; 83735; 83880; 84100; 84443; 84484; 85025; 85027; 86850; 86900; 86901; 87040; 87086; 87324; 87449; 88307; 93005; 93010; 93306; 94002; 94003; 96361; 96365; 96372; 96375; 96376; 97139; A4314; A4649; C2613; G0378; J0169; J0665; J0696; J1100; J1171; J1200; J1642; J1644; J1650; J1885; J1956; J2270; J2310; J2405; J2470; J2704; J3475; J3480; J3490; J7030; J7042; J7050; J7120; P9016; P9045; Q9967

== ENCOUNTER 2024-12-31 19:56 | Inpatient (IN) | payer MEDICARE ==
[2024-12-31] MEDS ORDERED: hydrALAZINE 20 MG/ML VIAL SLOW IVP PRN (22:19)
[2024-12-31] MEDS ORDERED: Dextrose 50% Abboject 50 ML SYRINGE SLOW IVP PRN (22:19)
[2024-12-31] MEDS ORDERED: Ondansetron PF 4 MG/2 ML Vial IVP PRN (22:19)
[2024-12-31] MEDS ORDERED: Glucagon 1 MG/ML KIT IM PRN (22:19)
[2025-01-01 07:44] LABS: #Basophils Less than 0.03 10x3/uL (0.0-0.2); #Eosinophils Less than 0.03 10x3/uL (0.0-0.7); #Monocytes 0.90 10x3/uL (0.11-0.59); #Neutrophils 4.03 10x3/uL (1.40-6.50); %Basophils 0.0 % (0.0-1.0); %Eosinophils 0.0 % (0.0-10.0); %Lymphocytes 17.3 % (21.0-51.0); %Monocytes 15.1 % (0.0-10.0); %Neutrophils 67.4 % (42.0-75.0); Hematocrit 31.7 % (36.0-47.0); Hemoglobin 9.9 g/dL (12.0-16.0); Mean Corpuscular Hemoglobin 28.0 pg (27.0-31.0); Mean Corpuscular Volume 89.8 fL (78.0-98.0); Platelet Count 442 10x3/uL (130-400); Red Blood Cell (RBC) Count 3.53 mill/uL (4.20-5.40); White Blood Cell (WBC) Count 5.97 10x3/uL (4.8-10.8)
[2025-01-01 08:04] LABS: Anion Gap 14 mmol/L (10-20); BUN (Urea Nitrogen) 11 mg/dL (9.8-20.1); Calc. Creatinine Clearance 0 mL/min (70-130); Calcium 8.5 mg/dL (7.8-10.44); Carbon Dioxide 26 mmol/L (23-31); Chloride 105 mmol/L (98-107); Glucose 85 mg/dL (83-110); Potassium 3.2 mmol/L (3.5-5.1); Sodium 142 mmol/L (136-145)
[2025-01-01 08:06] LABS: Magnesium 1.6 mg/dL (1.6-2.6)
[2025-01-01 21:44] VITALS: BMI 23.0
[2025-01-02 06:14] LABS: #Basophils Less than 0.03 10x3/uL (0.0-0.2); #Eosinophils Less than 0.03 10x3/uL (0.0-0.7); #Monocytes 1.06 10x3/uL (0.11-0.59); #Neutrophils 6.94 10x3/uL (1.40-6.50); %Basophils 0.0 % (0.0-1.0); %Eosinophils 0.0 % (0.0-10.0); %Lymphocytes 12.4 % (21.0-51.0); %Monocytes 11.6 % (0.0-10.0); %Neutrophils 75.8 % (42.0-75.0); Hematocrit 32.4 % (36.0-47.0); Hemoglobin 9.9 g/dL (12.0-16.0); Mean Corpuscular Hemoglobin 27.3 pg (27.0-31.0); Mean Corpuscular Volume 89.3 fL (78.0-98.0); Platelet Count 430 10x3/uL (130-400); Red Blood Cell (RBC) Count 3.63 mill/uL (4.20-5.40); White Blood Cell (WBC) Count 9.16 10x3/uL (4.8-10.8)
[2025-01-02 06:35] LABS: Anion Gap 17 mmol/L (10-20); BUN (Urea Nitrogen) 4 mg/dL (9.8-20.1); Calc. Creatinine Clearance 118 mL/min (70-130); Calcium 8.1 mg/dL (7.8-10.44); Carbon Dioxide 21 mmol/L (23-31); Chloride 102 mmol/L (98-107); Glucose 61 mg/dL (83-110); Potassium 2.6 mmol/L (3.5-5.1); Sodium 137 mmol/L (136-145)
[2025-01-02] MEDS ORDERED: Magnesium 2 GM/50 ML(in water) 2 GM in Premix 1 BAG IVPB SCH (08:15)
[2025-01-02] MEDS: Magnesium 2 GM/50 ML(in water) 2 GM in Premix 1 BAG IVPB SCH (11:52)
[2025-01-02] MEDS: Potassium Chloride 20 MEQ in Premix 1 BAG IVPB SCH (11:56)
[2025-01-02 13:00] VITALS: BMI 23.0
[2025-01-02] MEDS: PNEUMOC 20-VAL CONJ-DIP CRM/PF 0.5 ML SYRINGE IM ONE (20:51)
[2025-01-03 06:26] LABS: #Basophils Less than 0.03 10x3/uL (0.0-0.2); #Eosinophils Less than 0.03 10x3/uL (0.0-0.7); #Monocytes 1.18 10x3/uL (0.11-0.59); #Neutrophils 7.27 10x3/uL (1.40-6.50); %Basophils 0.1 % (0.0-1.0); %Eosinophils 0.0 % (0.0-10.0); %Lymphocytes 12.8 % (21.0-51.0); %Monocytes 12.1 % (0.0-10.0); %Neutrophils 74.8 % (42.0-75.0); Hematocrit 33.9 % (36.0-47.0); Hemoglobin 10.5 g/dL (12.0-16.0); Mean Corpuscular Hemoglobin 27.3 pg (27.0-31.0); Mean Corpuscular Volume 88.3 fL (78.0-98.0); Platelet Count 470 10x3/uL (130-400); Red Blood Cell (RBC) Count 3.84 mill/uL (4.20-5.40); White Blood Cell (WBC) Count 9.72 10x3/uL (4.8-10.8)
[2025-01-03 06:58] LABS: Anion Gap 10 mmol/L (10-20); BUN (Urea Nitrogen) Less than 4 mg/dL (9.8-20.1); Calc. Creatinine Clearance 129 mL/min (70-130); Calcium 7.9 mg/dL (7.8-10.44); Carbon Dioxide 27 mmol/L (23-31); Chloride 104 mmol/L (98-107); Glucose 91 mg/dL (83-110); Magnesium 1.8 mg/dL (1.6-2.6); Potassium 2.8 mmol/L (3.5-5.1); Sodium 138 mmol/L (136-145)
[2025-01-03] MEDS: Magnesium 2 GM/50 ML(in water) 2 GM in Premix 1 BAG IVPB SCH (09:41)
[2025-01-03] MEDS: Potassium Chloride 20 MEQ in Premix 1 BAG IVPB SCH (09:42)
[2025-01-04 04:44] LABS: #Basophils Less than 0.03 10x3/uL (0.0-0.2); #Eosinophils Less than 0.03 10x3/uL (0.0-0.7); #Monocytes 1.02 10x3/uL (0.11-0.59); #Neutrophils 5.53 10x3/uL (1.40-6.50); %Basophils 0.1 % (0.0-1.0); %Eosinophils 0.0 % (0.0-10.0); %Lymphocytes 16.3 % (21.0-51.0); %Monocytes 13.0 % (0.0-10.0); %Neutrophils 70.5 % (42.0-75.0); Hematocrit 34.7 % (36.0-47.0); Hemoglobin 10.7 g/dL (12.0-16.0); Mean Corpuscular Hemoglobin 27.5 pg (27.0-31.0); Mean Corpuscular Volume 89.2 fL (78.0-98.0); Platelet Count 442 10x3/uL (130-400); Red Blood Cell (RBC) Count 3.89 mill/uL (4.20-5.40); White Blood Cell (WBC) Count 7.85 10x3/uL (4.8-10.8)
[2025-01-04 05:03] LABS: Anion Gap 11 mmol/L (10-20); BUN (Urea Nitrogen) Less than 4 mg/dL (9.8-20.1); Calc. Creatinine Clearance 112 mL/min (70-130); Calcium 8.1 mg/dL (7.8-10.44); Carbon Dioxide 27 mmol/L (23-31); Chloride 105 mmol/L (98-107); Glucose 95 mg/dL (83-110); Potassium 3.3 mmol/L (3.5-5.1); Sodium 140 mmol/L (136-145)
[2025-01-04] MEDS: Potassium Chloride 20 MEQ in Premix 1 BAG IVPB SCH ×2 (05:56→12:42)
[2025-01-04] MEDS ORDERED: Lidocaine 1% PF 5 ML VIAL ONE (08:17)
[2025-01-04] MEDS ORDERED: PROPOFOL 20 ML ONE ×2 (08:17→08:37)
[2025-01-04] MEDS ORDERED: Bisacodyl 10 MG SUPP PR PRN (09:24)
[2025-01-05 08:58] LABS: #Basophils Less than 0.03 10x3/uL (0.0-0.2); #Eosinophils Less than 0.03 10x3/uL (0.0-0.7); #Monocytes 0.64 10x3/uL (0.11-0.59); #Neutrophils 4.67 10x3/uL (1.40-6.50); %Basophils 0.0 % (0.0-1.0); %Eosinophils 0.0 % (0.0-10.0); %Lymphocytes 18.8 % (21.0-51.0); %Monocytes 9.8 % (0.0-10.0); %Neutrophils 71.2 % (42.0-75.0); Hematocrit 34.5 % (36.0-47.0); Hemoglobin 11.0 g/dL (12.0-16.0); Mean Corpuscular Hemoglobin 27.8 pg (27.0-31.0); Mean Corpuscular Volume 87.1 fL (78.0-98.0); Platelet Count 436 10x3/uL (130-400); Red Blood Cell (RBC) Count 3.96 mill/uL (4.20-5.40); White Blood Cell (WBC) Count 6.55 10x3/uL (4.8-10.8)
[2025-01-05 09:27] LABS: Anion Gap 13 mmol/L (10-20); BUN (Urea Nitrogen) Less than 4 mg/dL (9.8-20.1); Calc. Creatinine Clearance 115 mL/min (70-130); Calcium 8.1 mg/dL (7.8-10.44); Carbon Dioxide 25 mmol/L (23-31); Chloride 102 mmol/L (98-107); Glucose 111 mg/dL (83-110); Potassium 3.2 mmol/L (3.5-5.1); Sodium 137 mmol/L (136-145)
[2025-01-05 20:23] LABS: Potassium 3.9 mmol/L (3.5-5.1)
[2025-01-06 04:50] LABS: #Basophils Less than 0.03 10x3/uL (0.0-0.2); #Eosinophils Less than 0.03 10x3/uL (0.0-0.7); #Monocytes 0.80 10x3/uL (0.11-0.59); #Neutrophils 4.60 10x3/uL (1.40-6.50); %Basophils 0.0 % (0.0-1.0); %Eosinophils 0.0 % (0.0-10.0); %Lymphocytes 23.0 % (21.0-51.0); %Monocytes 11.4 % (0.0-10.0); %Neutrophils 65.3 % (42.0-75.0); Hematocrit 33.3 % (36.0-47.0); Hemoglobin 10.3 g/dL (12.0-16.0); Mean Corpuscular Hemoglobin 27.3 pg (27.0-31.0); Mean Corpuscular Volume 88.3 fL (78.0-98.0); Platelet Count 431 10x3/uL (130-400); Red Blood Cell (RBC) Count 3.77 mill/uL (4.20-5.40); White Blood Cell (WBC) Count 7.04 10x3/uL (4.8-10.8)
[2025-01-06 05:32] LABS: Anion Gap 9 mmol/L (10-20); BUN (Urea Nitrogen) 5 mg/dL (9.8-20.1); Calc. Creatinine Clearance 101 mL/min (70-130); Calcium 8.5 mg/dL (7.8-10.44); Carbon Dioxide 28 mmol/L (23-31); Chloride 103 mmol/L (98-107); Glucose 83 mg/dL (83-110); Potassium 3.3 mmol/L (3.5-5.1); Sodium 137 mmol/L (136-145)
[2025-01-07 05:30] LABS: #Basophils Less than 0.03 10x3/uL (0.0-0.2); #Eosinophils Less than 0.03 10x3/uL (0.0-0.7); #Monocytes 0.75 10x3/uL (0.11-0.59); #Neutrophils 3.80 10x3/uL (1.40-6.50); %Basophils 0.2 % (0.0-1.0); %Eosinophils 0.0 % (0.0-10.0); %Lymphocytes 27.0 % (21.0-51.0); %Monocytes 12.0 % (0.0-10.0); %Neutrophils 60.6 % (42.0-75.0); Hematocrit 35.4 % (36.0-47.0); Hemoglobin 10.8 g/dL (12.0-16.0); Mean Corpuscular Hemoglobin 27.3 pg (27.0-31.0); Mean Corpuscular Volume 89.4 fL (78.0-98.0); Platelet Count 409 10x3/uL (130-400); Red Blood Cell (RBC) Count 3.96 mill/uL (4.20-5.40); White Blood Cell (WBC) Count 6.26 10x3/uL (4.8-10.8)
[2025-01-07 05:45] LABS: ALT (SGPT) 10 U/L (Less than 34); AST (SGOT) 16 U/L (11-34); Albumin 2.8 g/dL (3.1-4.5); Alkaline Phosphatase 66 U/L (40-110); Anion Gap 15 mmol/L (10-20); BUN (Urea Nitrogen) 6 mg/dL (9.8-20.1); Bilirubin, Total 0.2 mg/dL (0.3-1.2); Calc. Creatinine Clearance 99 mL/min (70-130); Calcium 8.6 mg/dL (7.8-10.44); Carbon Dioxide 28 mmol/L (23-31); Chloride 102 mmol/L (98-107); Globulin 3.0 g/dL (2.4-3.5); Glucose 77 mg/dL (83-110); Potassium 3.7 mmol/L (3.5-5.1); Sodium 141 mmol/L (136-145)
[2025-01-08 06:10] LABS: #Basophils Less than 0.03 10x3/uL (0.0-0.2); #Eosinophils Less than 0.03 10x3/uL (0.0-0.7); #Monocytes 0.96 10x3/uL (0.11-0.59); #Neutrophils 5.66 10x3/uL (1.40-6.50); %Basophils 0.1 % (0.0-1.0); %Eosinophils 0.0 % (0.0-10.0); %Lymphocytes 20.0 % (21.0-51.0); %Monocytes 11.5 % (0.0-10.0); %Neutrophils 68.0 % (42.0-75.0); Hematocrit 35.3 % (36.0-47.0); Hemoglobin 11.1 g/dL (12.0-16.0); Mean Corpuscular Hemoglobin 27.3 pg (27.0-31.0); Mean Corpuscular Volume 86.9 fL (78.0-98.0); Platelet Count 412 10x3/uL (130-400); Red Blood Cell (RBC) Count 4.06 mill/uL (4.20-5.40); White Blood Cell (WBC) Count 8.33 10x3/uL (4.8-10.8)
[2025-01-08 06:28] LABS: ALT (SGPT) 10 U/L (Less than 34); AST (SGOT) 21 U/L (11-34); Albumin 2.8 g/dL (3.1-4.5); Alkaline Phosphatase 65 U/L (40-110); Anion Gap 13 mmol/L (10-20); BUN (Urea Nitrogen) 9 mg/dL (9.8-20.1); Bilirubin, Total 0.1 mg/dL (0.3-1.2); Calc. Creatinine Clearance 99 mL/min (70-130); Calcium 8.9 mg/dL (7.8-10.44); Carbon Dioxide 26 mmol/L (23-31); Chloride 102 mmol/L (98-107); Globulin 3.1 g/dL (2.4-3.5); Glucose 81 mg/dL (83-110); Potassium 4.0 mmol/L (3.5-5.1); Sodium 137 mmol/L (136-145)
[2025-01-08 17:56] VITALS: BP 119/69; TEMP 97.5
== END 2025-01-08 18:08 | DRG 392 ==
LOC: ERS 19:56 → ERHOLD 22:19 → SURG B 01-01 08:46
PROVIDERS: ADMIT Surgery; ATTEND Surgery
PROC: 0D7K8DZ Dilation of Ascending Colon with Intraluminal Device, Via Natural or Artificial Opening Endoscopic (ICD-10-PCS; principal; 2024-12-31)
DX: K59.81 Ogilvie syndrome (principal); K56.7 Ileus, unspecified; K91.89 Other postprocedural complications and disorders of digestive system; K59.39 Other megacolon; K21.9 Gastro-esophageal reflux disease without esophagitis; E03.9 Hypothyroidism, unspecified; Z79.890 Hormone replacement therapy; Z79.899 Other long term (current) drug therapy; Z88.8 Allergy status to other drugs, medicaments and biological substances; Z91.011 Allergy to milk products; Z88.0 Allergy status to penicillin; Z91.018 Allergy to other foods
CPT/HCPCS: 36415; 74018; 74019; 80048; 80053; 83735; 84100; 84132; 85025; 99284; J2704; J3475; J3480; J7120

== ENCOUNTER 2025-03-24 13:15 | Outpatient (CLI) | payer MEDICARE | END 2025-03-24 13:16 | disposition home or self-care (01) | LOC: BICRAD 13:15 | PROVIDERS: ATTEND Internal Medicine | DX: S32.591D Other specified fracture of right pubis, subsequent encounter for fracture with routine healing (principal) | CPT/HCPCS: 72170 ==